=== PATIENT | male | born 1955 | race Caucasian/White ===

== ENCOUNTER → 2017-02-13 | Outpatient (CLI) | payer OTHER ==
[2014-06-13 09:23] VITALS: BP 159/106
--- NOTE | 2017-02-13 11:44 | CT ---
HISTORY: Hematuria and history of renal stones Study: CT abdomen and pelvis without contrast Comparison: None Technique: Multiple axial images of the abdomen and pelvis were obtained from the lung bases to the pubic symph ysis without the administration of IV contrast. Dose reduction techniques including Automated Expos ure Control (AEC) and adjustment of mA and kV were utilized. Findings: Limited images of the lower chest demonstrate mild bibasilar subsegmental atelectasis. No significan t pleural or pericardial effusion seen. Posterior lower lumbosacral fusion hardware is present witho ut visualized complication. No acute or aggressive osseous abnormality is seen. Within the limits of a noncontrast exam, the liver, gallbladder, spleen, pancreas, adrenal glands an d right kidney are unremarkable. There is a 6-7 mm nonobstructing calculus within the interpolar lef t kidney with a few additional adjacent, punctate nonobstructing stones. No additional radiopaque ur inary tract calculi are identified at any level and there is no evidence of hydronephrosis or hydrou reter of either collecting system. Mild colonic diverticulosis is noted. The remaining GI tract appears normal without evidence of obst ruction. The urinary bladder appears normal. The prostate gland is mildly enlarged. No free fluid, f ree air or adenopathy is appreciated. IMPRESSION: Nonobstructing left nephrolithiasis. No hydronephrosis or hydroureter. Mild prostatomegaly. Reported By:
== END | disposition home or self-care (01) | DRG 392 ==
LOC: RAD 11:06
PROVIDERS: ATTEND Internal Medicine
DX: R10.32 Left lower quadrant pain (principal); R31.9 Hematuria, unspecified; M54.5 Low back pain; R10.31 Right lower quadrant pain; N20.0 Calculus of kidney; N40.0 Benign prostatic hyperplasia without lower urinary tract symptoms
CPT/HCPCS: 74176

== ENCOUNTER 2018-11-08 15:54 | Observation (INO) ==
[2018-11-08 16:45] LABS: BASOPHILS # (AUTO) 0.2 X10^3/uL (0.0-0.1); BASOPHILS % (AUTO) 2.4 % (0.2-1.0); EOSINOPHILS % (AUTO) 0.2 % (0.9-2.9); HEMATOCRIT 43.1 % (42.0-54.0); HEMOGLOBIN 14.1 g/dL (13.5-18.0); LYMPHOCYTES # (AUTO) 1.8 X10^3/uL (1.3-2.9); LYMPHOCYTES % (AUTO) 21.7 % (21.0-51.0); MEAN CORPUSCULAR HEMOGLOBIN 28.7 pg (27.0-34.0); MEAN CORPUSCULAR HGB CONC 32.7 g/dL (33.0-35.0); MEAN CORPUSCULAR VOLUME 87.9 fL (80.0-100.0); MEAN PLATELET VOLUME 9.8 fL (7.4-11.0); MONOCYTES # (AUTO) 0.6 x10^3/uL (0.3-0.8); MONOCYTES % (AUTO) 6.8 % (0.0-13.0); NEUTROPHILS # (AUTO) 5.6 x10^3/uL (2.2-4.8); NEUTROPHILS % (AUTO) 68.9 % (42.0-75.0); PLATELET COUNT 359 X10^3/uL (150.0-450.0); RED BLOOD COUNT 4.91 X10^6/uL (4.7-6.0); RED CELL DISTRIBUTION WIDTH 14.4 % (11.6-16.5); WHITE BLOOD COUNT 8.1 X10^3/uL (3.6-10.0)
[2018-11-08 17:17] LABS: ALANINE AMINOTRANSFERASE 23 Units/L (12-78); ALBUMIN 3.7 g/dL (3.4-5.0); ALKALINE PHOSPHATASE 80 Units/L (46-116); ASPARTATE AMINO TRANSFERASE 10 Units/L (15-37); BLOOD UREA NITROGEN 40 mg/dL (7-18); CALCIUM 9.6 mg/dL (8.5-10.1); CARBON DIOXIDE 24.8 mmol/L (21-32); CHLORIDE 91 mmol/L (98-107); CREATININE 2.01 mg/dL (0.70-1.30); SODIUM 127 mmol/L (136-145); TOTAL PROTEIN 7.6 g/dL (6.4-8.2); eGFR NON BLACK RACES 36 (>60)
[2018-11-08 17:22] LABS: COR NA(FOR HYPERGLY) 141 mmol/L (136-145)
--- NOTE | 2018-11-08 17:59 | DR.UPDATE ---
H&P Update History and Physical Update: History and Physical reviewed and patient examined. Changes noted: Yes with the following: WAS SEEN IN THE OFFICE TODAY FOR COMPLAINTS OF HEADACHE, NAUSEA, VOMITING, DIZZINESS, WEAKNESS, AND HYPERGLYCEMIA. HE HAS BEEN TREATED WITH ANTIBIOTICS FOR A SINUS INFECTION WITHOUT IMPROVEMENT IN PAIN. HE WAS ADMITTED FOR FURTHER EVALUATION AND TREATMENT. A H&P WAS COMPLETED PRIOR TO ADMISSION. ON ADMISSION, WE OBTAINED LABS. ABNORMAL LAB VALUES INCLUDE THE FOLLOWING: SODIUM 127, CHLORIDE 91, BUN 40, CREATININE 2.01, GLUCOSE 664, AST 10. WE PLAN TO OBTAIN A BRAIN MRI WITHOUT CONTRAST IN THE MORNING. WE STARTED HIM ON NORMAL SALINE AT 125ML/HR, ROCEPHIN 1GM IV DAILY, TORADOL 30MG IV Q6H PRN PAIN, AND HUMULIN R SLIDING SCALE. OTHERWISE, WE WILL FOLLOW UP WITH AM LABS AND CONTINUE TO MONITOR.
[2018-11-08] MEDS: NS 1000 ML 1,000 ML IV SCH (18:21)
[2018-11-08] MEDS: ROCEPHIN VIAL 1 GRAM IVP SCH (18:21)
[2018-11-08 18:22] VITALS: BMI 25.7
[2018-11-08] MEDS: HumuLIN R SUBCUT PRN ×2 (18:25→22:14)
[2018-11-08] MEDS: TORADOL 30 MG VIAL IVP PRN (18:31)
[2018-11-08 20:20] LABS: BILIRUBIN,URINE NEGATIVE (NEGATIVE); BLOOD/HEMOGLOBIN,URINE NEGATIVE (NEGATIVE); GLUCOSE, URINE 4+ (NEGATIVE); KETONES,URINE NEGATIVE (NEGATIVE); LEUKOCYTE ESTERASE ,URINE NEGATIVE (NEGATIVE); NITRITES,URINE NEGATIVE (NEGATIVE); PROTEIN,URINE NEGATIVE (NEGATIVE); UROBILINOGEN,URINE NORMAL (NORMAL)
[2018-11-08 20:25] LABS: APPEARANCE,URINE CLEAR (CLEAR); COLOR,URINE YELLOW (YELLOW)
[2018-11-08] MEDS: ULTRAM PO PRN (20:36)
[2018-11-09] MEDS: NS 1000 ML 1,000 ML IV SCH ×3 (02:03→18:50)
[2018-11-09] MEDS: TORADOL 30 MG VIAL IVP PRN (05:08)
[2018-11-09 05:41] LABS: ALBUMIN 3.1 g/dL (3.4-5.0); CALCIUM 8.8 mg/dL (8.5-10.1); CARBON DIOXIDE 27.2 mmol/L (21-32); COR CA(FOR HYPOALB) 9.5 mg/dL (8.5-10.1); CREATININE 1.69 mg/dL (0.70-1.30); TOTAL PROTEIN 6.7 g/dL (6.4-8.2)
[2018-11-09 06:24] LABS: BASOPHILS # (AUTO) 0.1 X10^3/uL (0.0-0.1); BASOPHILS % (AUTO) 1.4 % (0.2-1.0); EOSINOPHILS # (AUTO) 0.1 x10^3/uL (0.0-0.2); EOSINOPHILS % (AUTO) 1.5 % (0.9-2.9); HEMATOCRIT 38.6 % (42.0-54.0); HEMOGLOBIN 12.9 g/dL (13.5-18.0); LYMPHOCYTES # (AUTO) 2.8 X10^3/uL (1.3-2.9); LYMPHOCYTES % (AUTO) 34.7 % (21.0-51.0); MEAN CORPUSCULAR HEMOGLOBIN 28.5 pg (27.0-34.0); MEAN CORPUSCULAR HGB CONC 33.5 g/dL (33.0-35.0); MEAN PLATELET VOLUME 9.8 fL (7.4-11.0); MONOCYTES # (AUTO) 0.5 x10^3/uL (0.3-0.8); MONOCYTES % (AUTO) 6.5 % (0.0-13.0); NEUTROPHILS # (AUTO) 4.5 x10^3/uL (2.2-4.8); NEUTROPHILS % (AUTO) 55.9 % (42.0-75.0); PLATELET COUNT 331 X10^3/uL (150.0-450.0); RED BLOOD COUNT 4.54 X10^6/uL (4.7-6.0); RED CELL DISTRIBUTION WIDTH 13.7 % (11.6-16.5); WHITE BLOOD COUNT 8.1 X10^3/uL (3.6-10.0)
--- NOTE | 2018-11-09 06:33 | RAD ---
History: Shortness of breath Study: Portable AP chest Comparison: March 20, 2018 Findings: The heart size is prominent. The lungs are clear. There is no edema or effusion or vascular congestion. Impression: No acute cardiopulmonary disease Reported By:
[2018-11-09] MEDS: ROCEPHIN VIAL 1 GRAM IVP SCH (08:27)
[2018-11-09] MEDS: ULTRAM PO PRN (08:29)
[2018-11-09] MEDS: FIORICET TAB PO PRN ×3 (10:00→18:51)
[2018-11-09] MEDS: HumuLIN R SUBCUT PRN ×3 (11:32→20:57)
[2018-11-09] MEDS ORDERED: VALIUM PO ONE (15:30)
--- NOTE | 2018-11-09 17:00 | MRI ---
MRI BRAIN WITHOUT CONTRAST CLINICAL HISTORY: 62-year-old male with intractable headache for 6 weeks. COMPARISON: CT head 03/20/2018. TECHNIQUE: Multiplanar, multisequence MR images of the brain were obtained without contrast. FINDINGS: There is no evidence of diffusion restriction. The craniocervical junction is normal. Pituitary and optic nerve complex are normal. Few scattered punctate T2 FLAIR signal hyperintensities are present within the subcortical, juxtacortical, periventricular and supraventricular white matter that are nonspecific in appearance but most likely to represent microvascular white matter ischemic changes. Normal signal characteristics and morphology are demonstrated within the cerebral cortex, corpus callosum, deep patiño nuclei, brainstem and cerebellum. The major vascular flow voids, to include the dural venous sinuses, are intact. No abnormal susceptibility on gradient imaging. Age related cortical volume loss is present, with commensurate sulcal and ventricular prominence. The basilar cisterns are normal. The orbits and globes are within normal limits. The paranasal sinuses, tympanic cavities and mastoids are clear. IMPRESSION: 1. No acute ischemic or hemorrhagic insult. 2. Mild, chronic microvascular white matter ischemic disease with age related volume loss. Reported By:
[2018-11-09] MEDS ORDERED: PHENERGAN TAB 25 MG PO PRN (19:54)
[2018-11-09] MEDS ORDERED: SNACK - Diabetic Appropriate PO SCH (20:00)
--- NOTE | 2018-11-09 20:11 | PCM.PROG ---
Progress Note - Progress Note for Day of Date of Exam: 11/09/18 - Subjective Subjective: WAS ADMITTED FOR INTRACTABLE HEADACHE, N/V, WEAKNESS, HYPERGLYCEMIA, AND DIZZINESS. TODAY, HE IS ALERT AND ORIENTED, LYING IN BED ON MORNING ROUNDS. HE CONTINUES WITH PAIN TO RIGHT SIDE OF HEAD AND FACE. ON EXAMINATION, HEART IS REGULAR IN RATE AND RHYTHM. BILATERAL LUNGS ARE NOTED WITH DIMINISHED LUNG SOUNDS THROUGHOUT. ABDOMEN IS ROUND, SOFT, AND NON-TENDER WITH NORMAL BOWEL SOUNDS NOTED IN ALL QUADRANTS. HIS VITALS THIS MORNING ARE 97.9-93-20-97%-148/83. LABS WERE OBTAINED. ABNORMAL LAB VALUES INCLUDE THE FOLLOWING: RBC 4.54, HGB 12.9, HCT 38.6, BUN 47, CREATININE 1.69, GLUCOSE 142, AST 12, ALBUMIN 3.1. CHEST XRAY OBTAINED AND REVEALED NO ACUTE CARDIOPULMONARY DISEASE. HE IS SCHEDULED FOR A BRAIN MRI TODAY. TODAY, WE WILL START FIORCET 1 TAB Q4H PRN PAIN. OTHERWISE, WE WILL FOLLOW UP WITH AM LABS AND CONTINUE TO MONITOR. - Past Medical Family Social History Past Med/Fam/Surg Hx: No changes since H&P Allergies: Allergies amoxicillin Allergy (Verified 11/08/18 16:40) - Review of Systems ROS: No change since H&P - Vital Signs and I&O's Vital Signs: Temperature 99 F Pulse Rate [Apical] 99 Respiratory Rate 20 Blood Pressure [Left Arm] 132/72 Blood Pressure 121/71 O2 Sat by Pulse Oximetry 97 Intake and Output: Intake & Output 11/07/18 11/08/18 11/09/18 11/10/18 11:59 11:59 11:59 11:59 Intake Total 2430 / 2430 480 / 480 Balance 2430 / 2430 480 / 480 - Physical Exam Oriented: Normal Eyes: Normal Ear: Normal Nose: Normal Throat: Normal Respiratory: Generalized, Diminished Cardiovascular: Normal : Normal Auscultation: Bowel Sounds: Normal Palpation: Normal Tenderness: Normal Skin: Normal Musculoskeletal: Normal Psychiatric: Normal Mood Description: Calm Speech Pattern: Clear, Appropriate - Laboratory and Diagnostics Result Diagrams: 11/09/18 04:36 11/09/18 04:36 Labs: Laboratory WBC 8.1 X10^3/uL (3.6-10.0) 11/09/18 04:36 RBC 4.54 X10^6/uL (4.7-6.0) L 11/09/18 04:36 Hgb 12.9 g/dL (13.5-18.0) L 11/09/18 04:36 Hct 38.6 % (42.0-54.0) L 11/09/18 04:36 MCV 85.0 fL (80.0-100.0) 11/09/18 04:36 MCH 28.5 pg (27.0-34.0) 11/09/18 04:36 MCHC 33.5 g/dL (33.0-35.0) 11/09/18 04:36 RDW 13.7 % (11.6-16.5) 11/09/18 04:36 Plt Count 331 X10^3/uL (150.0-450.0) 11/09/18 04:36 MPV 9.8 fL (7.4-11.0) 11/09/18 04:36 Neut % (Auto) 55.9 % (42.0-75.0) 11/09/18 04:36 Lymph % (Auto) 34.7 % (21.0-51.0) 11/09/18 04:36 [place] % (Auto) 6.5 % (0.0-13.0) 11/09/18 04:36 Eos % (Auto) 1.5 % (0.9-2.9) 11/09/18 04:36 Baso % (Auto) 1.4 % (0.2-1.0) H 11/09/18 04:36 Neut # (Auto) 4.5 x10^3/uL (2.2-4.8) 11/09/18 04:36 Lymph # (Auto) 2.8 X10^3/uL (1.3-2.9) 11/09/18 04:36 [place] # (Auto) 0.5 x10^3/uL (0.3-0.8) 11/09/18 04:36 Eos # (Auto) 0.1 x10^3/uL (0.0-0.2) 11/09/18 04:36 Baso # (Auto) 0.1 X10^3/uL (0.0-0.1) 11/09/18 04:36 Absolute Nucleated RBC 0.0 /100WBC 11/09/18 04:36 Sodium 136 mmol/L (136-145) 11/09/18 04:36 Corrected Sodium 137 mmol/L (136-145) 11/09/18 04:36 Potassium 4.5 mmol/L (3.5-5.1) 11/09/18 04:36 Chloride 101 mmol/L (98-107) 11/09/18 04:36 Carbon Dioxide 27.2 mmol/L (21-32) 11/09/18 04:36 BUN 47 mg/dL (7-18) H 11/09/18 04:36 Creatinine 1.69 mg/dL (0.70-1.30) H 11/09/18 04:36 Est GFR (MDRD) Af Amer 53 (>60) L 11/09/18 04:36 Est GFR (MDRD) Non-Af 44 (>60) L 11/09/18 04:36 Glucose 142 mg/dL (65-99) H 11/09/18 04:36 POC Glucose (mg/dL) 194 mg/dL (65-99) H 11/09/18 16:59 Calcium 8.8 mg/dL (8.5-10.1) 11/09/18 04:36 Corrected Calcium 9.5 mg/dL (8.5-10.1) 11/09/18 04:36 Total Bilirubin 0.20 mg/dL (0.2-1.0) 11/09/18 04:36 AST 12 Units/L (15-37) L 11/09/18 04:36 ALT 20 Units/L (12-78) 11/09/18 04:36 Alkaline Phosphatase 66 Units/L (46-116) 11/09/18 04:36 Total Protein 6.7 g/dL (6.4-8.2) 11/09/18 04:36 Albumin 3.1 g/dL (3.4-5.0) L 11/09/18 04:36 Globulin 3.6 g/dL (2.5-4.5) 11/09/18 04:36 Albumin/Globulin Ratio 0.9 Ratio (1.1-2.1) L 11/09/18 04:36 Specimen Type Clean catch urine 11/08/18 20:05 Urine Color Yellow (YELLOW) 11/08/18 20:05 Urine Appearance Clear (CLEAR) 11/08/18 20:05 Urine pH 5.0 (5.0 - 8.0) 11/08/18 20:05 Ur Specific [place] 1.015 (1.000-1.030) 11/08/18 20:05 Urine Protein Negative (NEGATIVE) 11/08/18 20:05 Urine Glucose (UA) 4+ (NEGATIVE) 11/08/18 20:05 Urine Ketones Negative (NEGATIVE) 11/08/18 20:05 Urine Occult Blood Negative (NEGATIVE) 11/08/18 20:05 Urine Nitrite Negative (NEGATIVE) 11/08/18 20:05 Urine Bilirubin Negative (NEGATIVE) 11/08/18 20:05 Urine Urobilinogen Normal (NORMAL) 11/08/18 20:05 Ur Leukocyte Esterase Negative (NEGATIVE) 11/08/18 20:05 Acetone, Semi-Quant Negative (NEGATIVE) 11/08/18 16:32 - Plan (1) Intractable headache Status: Acute Qualifiers: Headache type: unspecified Headache chronicity pattern: acute headache Qualified Code(s): R51 - Headache Plan: OBTAIN BRAIN MRI, FIORCET 1 TAB Q4H PRN, TORADOL 30MG IV Q6H PRN, TRAMADOL, CONTINUE TO MONITOR (2) Nausea & vomiting Status: Acute (3) Weakness Status: Acute
[2018-11-09] MEDS: NORVASC TAB 5 MG PO SCH (20:30)
[2018-11-09] MEDS: HYDROCHLOROTHIAZIDE 12.5 MG CAP PO SCH (20:30)
[2018-11-09] MEDS: ZESTRIL TAB 10 MG PO SCH (20:30)
[2018-11-09] MEDS: PAXIL PO SCH (20:30)
[2018-11-09] MEDS: MAG-OX TAB PO SCH (20:30)
[2018-11-09] MEDS: FLUTICASONE FUROATE Intranasal SCH (20:41)
[2018-11-09] MEDS ORDERED: MAGNESIUM 250 MG PO SCH (21:00)
[2018-11-09] MEDS ORDERED: ZOCOR TAB 40 MG PO SCH (21:00)
[2018-11-09] MEDS ORDERED: FLEXERIL TAB 10 MG PO SCH (21:00)
[2018-11-09] MEDS ORDERED: SIMVASTATIN 80 MG PO SCH (21:00)
[2018-11-09] MEDS ORDERED: PATIENT'S HOME MEDICATION (Lisinopril-Hydrochlorothiazide [Lisinopril-Hydrochlorothiazide] PO SCH (21:00)
[2018-11-10] MEDS: NS 1000 ML 1,000 ML IV SCH (00:59)
[2018-11-10] MEDS: FIORICET TAB PO PRN (04:05)
[2018-11-10] MEDS: HumuLIN R SUBCUT PRN ×2 (06:15→12:05)
[2018-11-10 07:12] LABS: ALANINE AMINOTRANSFERASE 21 Units/L (12-78); ALBUMIN 3.1 g/dL (3.4-5.0); ALKALINE PHOSPHATASE 61 Units/L (46-116); ASPARTATE AMINO TRANSFERASE 16 Units/L (15-37); BLOOD UREA NITROGEN 32 mg/dL (7-18); CALCIUM 8.5 mg/dL (8.5-10.1); CARBON DIOXIDE 24.9 mmol/L (21-32); CHLORIDE 101 mmol/L (98-107); COR CA(FOR HYPOALB) 9.2 mg/dL (8.5-10.1); COR NA(FOR HYPERGLY) 140 mmol/L (136-145); SODIUM 136 mmol/L (136-145); TOTAL PROTEIN 6.7 g/dL (6.4-8.2); eGFR NON BLACK RACES > 60 (>60)
[2018-11-10 07:18] LABS: BASOPHILS # (AUTO) 0.1 X10^3/uL (0.0-0.1); BASOPHILS % (AUTO) 1.3 % (0.2-1.0); EOSINOPHILS # (AUTO) 0.1 x10^3/uL (0.0-0.2); EOSINOPHILS % (AUTO) 1.5 % (0.9-2.9); HEMATOCRIT 37.8 % (42.0-54.0); HEMOGLOBIN 12.5 g/dL (13.5-18.0); LYMPHOCYTES # (AUTO) 2.2 X10^3/uL (1.3-2.9); MEAN CORPUSCULAR HEMOGLOBIN 28.3 pg (27.0-34.0); MEAN CORPUSCULAR VOLUME 85.8 fL (80.0-100.0); MEAN PLATELET VOLUME 9.9 fL (7.4-11.0); MONOCYTES # (AUTO) 0.5 x10^3/uL (0.3-0.8); MONOCYTES % (AUTO) 6.6 % (0.0-13.0); NEUTROPHILS # (AUTO) 4.1 x10^3/uL (2.2-4.8); NEUTROPHILS % (AUTO) 58.6 % (42.0-75.0); PLATELET COUNT 310 X10^3/uL (150.0-450.0); RED CELL DISTRIBUTION WIDTH 14.4 % (11.6-16.5)
[2018-11-10] MEDS: MAG-OX TAB PO SCH (08:55)
[2018-11-10] MEDS: ZESTRIL TAB 10 MG PO SCH (08:55)
[2018-11-10] MEDS: ROCEPHIN VIAL 1 GRAM IVP SCH (08:55)
[2018-11-10] MEDS: PAXIL PO SCH (08:56)
[2018-11-10] MEDS: HYDROCHLOROTHIAZIDE 12.5 MG CAP PO SCH (08:56)
[2018-11-10] MEDS: NORVASC TAB 5 MG PO SCH (08:57)
[2018-11-10] MEDS ORDERED: ACTOS PO SCH (09:00)
[2018-11-10] MEDS ORDERED: COMPAZINE PO SCH (09:00)
[2018-11-10] MEDS: FLUTICASONE FUROATE Intranasal SCH (09:00)
[2018-11-10] MEDS ORDERED: PEPCID TAB 20 MG PO ONE (10:17)
[2018-11-10 12:55] VITALS: BP 146/84
== END 2018-11-10 12:25 | disposition home or self-care (01) ==
LOC: MED/SURG
PROVIDERS: ADMIT Internal Medicine; ATTEND Internal Medicine
DX: E11.65 Type 2 diabetes mellitus with hyperglycemia; R42 Dizziness and giddiness; I10 Essential (primary) hypertension; R11.2 Nausea with vomiting, unspecified; R94.4 Abnormal results of kidney function studies; R51 Headache; R06.02 Shortness of breath; R53.1 Weakness
CPT/HCPCS: 36415; 70551; 71010; 71045; 80053; 81003; 82009; 82947; 85025; 93005; 96367; 96372; 96374; A4216; A4222; Q0169; G0378; J0696; J1815; J1885; J7030

== ENCOUNTER 2018-12-18 11:13 | Inpatient (IN) ==
[2018-12-18 11:18] VITALS: BMI 27.3
--- NOTE | 2018-12-18 12:13 | DR.DIZZY ---
HPI - Time seen Time seen: 12:04 - PCP Primary Care Physician: ASHLEY - Complaint Chief Complaint Doctor Comments: Patient is complaining of dizziness when he stand like he is going to pass out for the past 24 hours getting worst today. States he lives alone but did not come to the doctor because he do not like hospitals. States he has a large dark stook but he are chocolate candy and thought that was why his stool was dark. States he has been having abdominal pain earlier and has seen several different specialist and they tell his so mething different but he denies history of stomach ulcers. He denies hematuria, nausea, vomiting or diarrhea. He denies tobacco or alcohol usage. States he is a patient of Dr. Leary and has diabetes and takes 10 units of insulin with sliding scale. States he has a dull headache, dizziness and problems with his balance when he stand. He denies any recent trauma or falls. Chief Complaint:: PT. C/O DIZZINES AND SYNCOPE. PT. STATES HE PASSED OUT YESTERDAY MORNING WHILE FEEDING HORSES. - Nurses Notes Reviewed Nurses Notes Review: Yes - Source History Provided: Patient - Mode of Arrival Mode of Arrival: Wheelchair - Timing Onset of Chief Complaint: 12/17/18 Came on: Gradually Symptom Onset: Unknown - Duration Duration: Constant How lon Duration: Days - Location of Weakness Weakness Location: Generalized - Context Onset: At rest Does pt take pot. toxic medication?: No History of: DM Stroke Symptoms: Dizziness - Severity Severity: Normal activity level - Modifying factors Worsens: Change in Position, Other (standing) - Associated signs and symptoms Associated Signs and Symptoms: Syncope, Near Syncope, Imbalance, Weak, Headache PMH - PMH Past Medical History: Yes Past Medical History: Hypertension, Diabetes Past Surgical History: Yes Surgical History: Joint Replacement, Ortho Surgery - Family History History of Family Medical Conditions: Yes Family Medical History: Coronary Artery Disease, Hypertension - Social History Does patient currently use any type of tobacco product: No Have you used tobacco products in the last 12 months: No Type of Tobacco Use: None Does any household member use tobacco: No Alcohol Use: None Do you use any recreational Drugs:: No Lives With: Family Lives Where: Home - infectious screening In the last 2 months have you had wt loss of >10#?: NO Have you had fever, night sweats or hemotysis?: No Have you traveled outside the country in the last 6 months?: No Isolation: Standard ROS - Review of Systems Constitutional: No Symptoms Reported, Loss of Appetite Eyes: No Symptoms Reported ENTM: No Symptoms Reported Respiratoy: No Symptoms Reported. negative: See HPI, Productive Cough, Non- Productive Cough, Moist Cough, Dry Cough, Hacking Cough, Barking Cough, Brassy Cough, Orthopnea, Short of Breath, Stridor, Wheezing, Hemoptysis, Other Cardiovascular: No Symptoms Reported. negative: See HPI, Chest Pain, Edema, Palpitations, Syncope, Cyanosis, Skin Mottling, Other Gastrointestinal/Abdominal: No Symptoms Reported. negative: See HPI, Abdominal Pain, Constipation, Diarrhea, Nausea, Vomiting, Food Intolerance, Other Genitourinary: No Symptoms Reported Neurological: No Symptoms Reported, Headache, Weakness, Dizziness, Problems Walking. negative: See HPI, Anxiety, Depressed, Emotional Problems, Numbness, Paresthesia, Pre-existing Deficit, Seizure, Tingling, Tremors, Speech Problem, Other Musculoskeletal: No Symptoms Reported Integumentary: No Symptoms Reported Hematologic/Lymphatic: No Symptoms Reported Endocrine: No Symptoms Reported Psychiatric: No Symptoms Reported. negative: See HPI, Anxiety, Depression, Hallucinations, Excessive crying, Suicidal, Other PE - General Limitations: No Limitations General Appearance: Alert, In Distress (moderate) - Head Head Exam: Normal Inspection, Atraumatic, Normocephalic - Eyes Eye exam: Normal Appearance, PERRL, EOMI. negative: Scleral Icterus, Conjunctival Injection, Nystagmus, Miosis, Mydrasis, Periorbital Swelling, Periorbital Tenderness, Other Pupils: Regular, Round: Bilateral, Reactive: Bilateral Sclera/Conjunctival: Normal Inspection: Bilateral Anterior Chamber: Normal Inspection: Bilateral Posterior Chamber: Deferred: Bilateral - ENT ENT Exam: Normal Exam, Normal Oropharynx, Normal External Ear Exam, Mucous Membranes Moist, TM's Normal Bilaterally - Neck Neck Exam: Normal Inspection, Full ROM, Trachea Midline. negative: Tenderness, Meningismus, Lymphadenopathy, Thyromegaly, Other - Chest Chest Inspection: Normal Inspection, Symmetric Chest Wall Rise. negative: Tenderness, Rash, Abscess, Other - Respiratory Respiratory Exam: Normal Lung Sounds Bilat Respiratory Exam: Bilateral Clear to Auscultation - Cardiovascular Cardiovascular Exam: Regular Rate, Normal Rhythm, Normal Heart Sounds - Abdominal Exam Abdominal Exam: Normal Inspection, Normal Bowel Sounds, Soft Abdominal Tenderness: negative: RUQ, RLQ, LUQ, LLQ, Epigastrium, Suprapubic, Diffuse, Mild, Moderate, Severe, Other - Rectal Rectal Exam: Normal Rectal Tone, Heme (+) Stool, Bloody Stool - Extremeties Extremities Exam: Normal Inspection, Full ROM, Normal Capillary Refill. ne gative: Tenderness, Edema, Joint Swelling, Calf Tenderness, Other - Back Back Exam: Normal Inspection, Full ROM. negative: Tenderness, (R) CVA Tenderness, (L) CVA Tenderness, Muscle Spasm, Paraspinal Tenderness, Vertebral Tenderness, Rashes, (R) Sciatic Notch Tenderness, (L) Sciatic Notch Tendern, (R) Straight Leg Raise, (L) Straight Leg Raise, Other - Neurologic Neurological Exam: Alert, Oriented X3, CN II-XII Intact, Reflexes Normal. negative: Normal Gait (gait not tested) Speech: Fluid Speech Cranial Nerve Exam: EOM Function (II, III, IV, ): Normal, Facial Sensation (V): Normal, Facial Palsy (VII): Normal, Gag reflex (XI): Normal, Tongue Deviation: Normal Cerebellar Function: negative: Normal Gait (gait not tested) Motor Strength - LUE: 5/5 Motor Strength - RUE: 5/5 Motor Strength - LLE: 5/5 Motor Strength - RLE: 5/5 Upper Motor Neuron Exam: Babinski Sign: Normal Sensory Exam Upper Extremity: Light Touch: Normal Sensory Exam Lower Extremity: Light Touch: Normal DTR: bicep (L): 2+, bicep (R): 2+, Patellar (L): 2+, patellar (R): 2+ - Psychiatric Psychiatric Exam: Normal Affect, Normal Mood - Skin Skin Exam: Warm, Dry, Intact, Normal Color, Pallor - Vital Signs Vitals: Temperature 97.6 F Pulse Rate [Apical] 110 Pulse Rate 123 Respiratory Rate 19 Blood Pressure [Left Arm] 113/58 Blood Pressure 110/68 O2 Sat by Pulse Oximetry 96 Course - Reevaluation 1st: Improved - Consultation Called: 13:43 Call Returned: 13:44 (Dr. Rose to admit) - Education/Counseling Education/Counseling: Patient Educated On: Treatment, Diagnosis, Needs for Follow Up ROR - Labs Reviewed Laboratory Results Reviewed?: Yes (All labs and x-ray results reviewed and discussed with patient) Result Diagrams: 12/18/18 11:47 12/18/18 11:47 - XRAY XRAY Interpreted by: Radiologist (CXR: No acute cardiopulmonary changes noted) XRAY Findings: CT head: Noacut intracranial process identified. Mild generalized atrophy - EKG Rate: 113 [place]: Normal Rhythm: ST Block: None Hypertrophy: None ST: Nonsp - Labs Reviewed Laboratory: WBC 10.7 X10^3/uL (3.6-10.0) H 12/18/18 11:47 RBC 2.79 X10^6/uL (4.7-6.0) L 12/18/18 11:47 Hgb 8.4 g/dL (13.5-18.0) L 12/18/18 11:47 Hct 24.8 % (42.0-54.0) L 12/18/18 11:47 MCV 89.1 fL (80.0-100.0) 12/18/18 11:47 MCH 30.1 pg (27.0-34.0) 12/18/18 11:47 MCHC 33.8 g/dL (33.0-35.0) 12/18/18 11:47 RDW 15.3 % (11.6-16.5) 12/18/18 11:47 Plt Count 268 X10^3/uL (150.0-450.0) 12/18/18 11:47 MPV 8.7 fL (7.4-11.0) 12/18/18 11:47 Neut % (Auto) 77.1 % (42.0-75.0) H 12/18/18 11:47 Lymph % (Auto) 17.8 % (21.0-51.0) L 12/18/18 11:47 [place] % (Auto) 4.0 % (0.0-13.0) 12/18/18 11:47 Eos % (Auto) 0.0 % (0.9-2.9) L 12/18/18 11:47 Baso % (Auto) 1.1 % (0.2-1.0) H 12/18/18 11:47 Neut # (Auto) 8.3 x10^3/uL (2.2-4.8) H 12/18/18 11:47 Lymph # (Auto) 1.9 X10^3/uL (1.3-2.9) 12/18/18 11:47 [place] # (Auto) 0.4 x10^3/uL (0.3-0.8) 12/18/18 11:47 Eos # (Auto) 0.0 x10^3/uL (0.0-0.2) 12/18/18 11:47 Baso # (Auto) 0.1 X10^3/uL (0.0-0.1) 12/18/18 11:47 Absolute Nucleated RBC 0.0 /100WBC 12/18/18 11:47 INR Target Range - 12/18/18 11:47 INR 1.04 (0.8-1.3) 12/18/18 11:47 APTT 22.1 SECONDS (22.9-36.5) L 12/18/18 11:47 PTT Comment - 12/18/18 11:47 Sodium 137 mmol/L (136-145) 12/18/18 11:47 Corrected Sodium 143 mmol/L (136-145) 12/18/18 11:47 Potassium 4.2 mmol/L (3.5-5.1) 12/18/18 11:47 Chloride 102 mmol/L (98-107) 12/18/18 11:47 Carbon Dioxide 26.1 mmol/L (21-32) 12/18/18 11:47 BUN 41 mg/dL (7-18) H 12/18/18 11:47 Creatinine 1.63 mg/dL (0.70-1.30) H 12/18/18 11:47 Est GFR (MDRD) Af Amer 55 (>60) L 12/18/18 11:47 Est GFR (MDRD) Non-Af 45 (>60) L 12/18/18 11:47 Glucose 339 mg/dL (65-99) H 12/18/18 11:47 POC Glucose (mg/dL) 388 mg/dL (65-99) H 12/18/18 11:21 Calcium 8.5 mg/dL (8.5-10.1) 12/18/18 11:47 Corrected Calcium 9.2 mg/dL (8.5-10.1) 12/18/18 11:47 Magnesium 1.7 mg/dL (1.7-2.9) 12/18/18 11:47 Total Bilirubin 0.20 mg/dL (0.2-1.0) 12/18/18 11:47 AST 11 Units/L (15-37) L 12/18/18 11:47 ALT 16 Units/L (12-78) 12/18/18 11:47 Alkaline Phosphatase 35 Units/L (46-116) L 12/18/18 11:47 Creatine Kinase 37 Units/L (39-308) L 12/18/18 11:47 CK-MB (CK-2) 1.2 ng/mL (0-4.0) 12/18/18 11:47 CK/CKMB % Calc 3.2 % (<4) 12/18/18 11:47 Troponin I < 0.02 ng/mL (0-1.5) 12/18/18 11:47 Total Protein 5.9 g/dL (6.4-8.2) L 12/18/18 11:47 Albumin 3.1 g/dL (3.4-5.0) L 12/18/18 11:47 Globulin 2.8 g/dL (2.5-4.5) 12/18/18 11:47 Albumin/Globulin Ratio 1.1 Ratio (1.1-2.1) 12/18/18 11:47 Stool Description Ifob collection tube 12/18/18 11:47 Stl Occult Blood (IFOB) Positive (NEGATIVE) A 12/18/18 11:47 Blood Type A POSITIVE 12/18/18 12:27 Antibody Screen Negative 12/18/18 12:27 Crossmatch See Detail 12/18/18 12:27 - Diagnosis Discharge Problem: Weakness, Chronic kidney disease (CKD), Sinus tachycardia, Dizziness GI (gastrointestinal bleed) Qualifiers: GI bleed type/associated pathology: unspecified gastrointestinal hemorrhage type Qualified Code(s): K92.2 - Gastrointestinal hemorrhage, unspecified Diabetes mellitus Qualifiers: Diabetes mellitus type: type 1 Headache Qualifiers: Headache type: unspecified Syncope Qualifiers: Encounter type: initial encounter - Discharge Plan Disposition: ADMITTED INPATIENT Condition: Stable
--- NOTE | 2018-12-18 12:27 | RAD ---
Examination: Portable AP chest History: Dizzy with syncope Comparison 11/09/2018 Findings: Continued normal heart size with clear lungs and pleural spaces. Impression: No interval change or acute disease demonstrated. Reported By:
[2018-12-18 12:37] LABS: BASOPHILS # (AUTO) 0.1 X10^3/uL (0.0-0.1); BASOPHILS % (AUTO) 1.1 % (0.2-1.0); HEMATOCRIT 24.8 % (42.0-54.0); HEMOGLOBIN 8.4 g/dL (13.5-18.0); LYMPHOCYTES # (AUTO) 1.9 X10^3/uL (1.3-2.9); LYMPHOCYTES % (AUTO) 17.8 % (21.0-51.0); MEAN CORPUSCULAR HEMOGLOBIN 30.1 pg (27.0-34.0); MEAN CORPUSCULAR HGB CONC 33.8 g/dL (33.0-35.0); MEAN CORPUSCULAR VOLUME 89.1 fL (80.0-100.0); MEAN PLATELET VOLUME 8.7 fL (7.4-11.0); MONOCYTES # (AUTO) 0.4 x10^3/uL (0.3-0.8); NEUTROPHILS # (AUTO) 8.3 x10^3/uL (2.2-4.8); NEUTROPHILS % (AUTO) 77.1 % (42.0-75.0); PLATELET COUNT 268 X10^3/uL (150.0-450.0); RED BLOOD COUNT 2.79 X10^6/uL (4.7-6.0); RED CELL DISTRIBUTION WIDTH 15.3 % (11.6-16.5); WHITE BLOOD COUNT 10.7 X10^3/uL (3.6-10.0)
[2018-12-18 12:58] LABS: BLOOD UREA NITROGEN 41 mg/dL (7-18); CALCIUM 8.5 mg/dL (8.5-10.1); CARBON DIOXIDE 26.1 mmol/L (21-32); CHLORIDE 102 mmol/L (98-107); COR NA(FOR HYPERGLY) 143 mmol/L (136-145); CREATININE 1.63 mg/dL (0.70-1.30); SODIUM 137 mmol/L (136-145); TROPONIN I < 0.02 ng/mL (0-1.5); eGFR NON BLACK RACES 45 (>60)
[2018-12-18] MEDS ORDERED: NS 1000 ML 1,000 ML IV SCH (13:00)
[2018-12-18 13:02] LABS: ALANINE AMINOTRANSFERASE 16 Units/L (12-78); ALBUMIN 3.1 g/dL (3.4-5.0); ALKALINE PHOSPHATASE 35 Units/L (46-116); ASPARTATE AMINO TRANSFERASE 11 Units/L (15-37); CKMB % 3.2 % (<4); COR CA(FOR HYPOALB) 9.2 mg/dL (8.5-10.1); CREATINE KINASE 37 Units/L (39-308); CREATINE KINASE MB 1.2 ng/mL (0-4.0); MAGNESIUM 1.7 mg/dL (1.7-2.9); TOTAL PROTEIN 5.9 g/dL (6.4-8.2)
[2018-12-18] MEDS ORDERED: TYLENOL #3 TAB (W/CODEINE) PO STA (13:26)
--- NOTE | 2018-12-18 14:07 | CT ---
HISTORY: Had a Study: CT brain without contrast Comparison: March 20, 2018 Technique: Multiple axial images of the brain were obtained from the skull base to the vertex without administration of IV contrast. Findings: No acute intraparenchymal hemorrhage or mass can be identified. No extra-axial fluid collections are seen. No alteration in the attenuation of the brain parenchyma can be identified to suggest acute or subacute ischemic change. The ventricles, sulci, and cisterns demonstrate an appearance consistent with a mild degree of generalized atrophy. Patchy areas of decreased attenuation within the periventricular, subcortical, and subinsular white matter suggest changes of chronic small vessel ischemic disease. If symptoms or clinical concern persist recommend continued follow-up for further evaluation. IMPRESSION: No acute intracranial process can be identified. Mild generalized atrophy with findings consistent with changes of chronic small vessel ischemic disease. Reported By:
--- NOTE | 2018-12-18 14:49 | DR.H&P ---
H&P - History & Physical for Day of: H&P Date: 12/18/18 - Chief Complaint Chief Complaint: SYNCOPE - History of Present Illness History of Present Illness: 63 WM ER ADMISSION AFTER PRESENTING WITH CO dizziness when he stand like he is going to pass out for the past 24 hours getting worst today. States he lives alone but did not come to the doctor because he do not like hospitals. States he has a large dark stook but he are chocolate candy and thought that was why his stool was dark. States he has been having abdominal pain earlier and has seen several different specialist and they tell his something different but he denies history of stomach ulcers. He denies hematuria, nausea, vomiting or diarrhea. He denies tobacco or alcohol usage. States he is a patient of Dr. Leary and has diabetes and takes 10 units of insulin with sliding scale. States he has a dull headache, dizziness and problems with his balance when he stand. He denies any recent trauma or falls. HCG 8.4 IN ER, OCCULT + STOOL. PT ADMITTED FOR TREATMENT OF GI BLEED, NPO, IV PROTONIX. - Past Medical History Past Medical History: Hypertension, Diabetes - Past Surgical History Surgical History: Joint Replacement, Ortho Surgery - Family History Family Medical History: Coronary Artery Disease, Hypertension - Social History Does patient currently use any type of tobacco product: No Have you used tobacco products in the last 12 months: No Type of Tobacco Use: None Does any household member use tobacco: No Alcohol Use: None - Medications Home Medications: amoxicillin Allergy (Verified 12/18/18 11:18) CONTINUE taking the following medications glipizide 10 mg PO DAILY 12/18/18 [History] insulin NPH isoph U-100 human [Novolin N NPH U-100 Insulin] 10 units SUBCUT BID 12/18/18 [History] insulin regular human [Humulin R Regular U-100 Insuln] 10 units SUBCUT TID 12/18/18 [History] - Review of Systems Constitutional: Weakness Eyes: No Symptoms Reported ENT: No Symptoms Reported Respiratory: No Symptoms Reported Cardiovascular: No Symptoms Reported Gastrointestinal: Abdominal Pain, Melena Genitourinary: No Symptoms Reported Musculoskeletal: No Symptoms Reported Skin: No Symptoms Reported Neurological: Weakness - Physical Exam Vital Signs: Temperature 97.6 F Pulse Rate [Apical] 101 Pulse Rate 123 Respiratory Rate 25 Blood Pressure [Left Arm] 124/74 Blood Pressure 110/68 O2 Sat by Pulse Oximetry 95 Oriented: Normal Eyes: Normal Ear: Normal Nose: Normal Throat: Normal Respiratory: RLL Diminished, LLL Diminished Cardiovascular: Normal : Normal Auscultation: Bowel Sounds: Normal Palpation: Normal Tenderness: Epigastric, Mild Skin: Decreased Turgur Musculoskeletal: Normal Psychiatric: Anxiety Affect: Anxious Speech Pattern: Clear, Appropriate - Assessment/Plan (1) Syncope Qualifiers: Encounter type: initial encounter Status: Acute Plan: ADMIT, CT HEAD IN ER. CXR, EKG ON ADMISSION. OCCULT STOOL, IV PROTONIX, MONITOR H&H. IV HYDRATION, STRICT I & OS. NPO, GI CONSULT (2) Abdominal pain Status: Acute (3) Diabetes mellitus Qualifiers: Diabetes mellitus type: type 1 Status: Acute (4) Weakness Status: Acute (5) GI (gastrointestinal bleed) Qualifiers: GI bleed type/associated pathology: unspecified gastrointestinal hemorrhage type Qualified Code(s): K92.2 - Gastrointestinal hemorrhage, unspecified Status: Acute - Allergies Allergies/Adverse Reactions: Allergies Allergy/AdvReac Type Severity Reaction Status Date / Time amoxicillin Allergy Verified 12/18/18 11:18
[2018-12-18] MEDS ORDERED: ZOFRAN INJ 4 MG VIAL IVP PRN (15:45)
[2018-12-18 16:03] LABS: IRON 50 ug/dL (50-175)
[2018-12-18] MEDS ORDERED: NS 100 ML IV 100 ML ONE (16:13)
[2018-12-18] MEDS: NS 1000 ML 1,000 ML IV SCH (16:39)
[2018-12-18] MEDS: PROTONIX INJ 40 MG VIAL IVP SCH ×2 (16:41→21:28)
[2018-12-18 17:32] LABS: CKMB % 2.1 % (<4); CREATINE KINASE 47 Units/L (39-308); TROPONIN I < 0.02 ng/mL (0-1.5)
[2018-12-18 19:33] LABS: HEMATOCRIT 22.6 % (42.0-54.0); HEMOGLOBIN 7.6 g/dL (13.5-18.0)
[2018-12-18] MEDS: HumuLIN R SUBCUT PRN (22:00)
[2018-12-18 22:04] LABS: CREATINE KINASE MB 1.2 ng/mL (0-4.0); TROPONIN I 0.02 ng/mL (0-1.5)
[2018-12-18 23:38] LABS: IRON 72 ug/dL (50-175); TOTAL IRON BINDING CAPACITY 315 ug/dL (250-450)
[2018-12-19] MEDS: NORCO 5/325 MG TAB PO PRN
[2018-12-19] MEDS: NS 1000 ML 1,000 ML IV SCH ×2 (04:14→15:18)
[2018-12-19 05:34] LABS: ALANINE AMINOTRANSFERASE 14 Units/L (12-78); ALBUMIN 2.7 g/dL (3.4-5.0); ALKALINE PHOSPHATASE 29 Units/L (46-116); ASPARTATE AMINO TRANSFERASE 13 Units/L (15-37); BLOOD UREA NITROGEN 29 mg/dL (7-18); CALCIUM 8.1 mg/dL (8.5-10.1); CARBON DIOXIDE 26.3 mmol/L (21-32); CHLORIDE 106 mmol/L (98-107); COR CA(FOR HYPOALB) 9.1 mg/dL (8.5-10.1); COR NA(FOR HYPERGLY) 140 mmol/L (136-145); CREATININE 1.15 mg/dL (0.70-1.30); SODIUM 139 mmol/L (136-145); TOTAL PROTEIN 5.1 g/dL (6.4-8.2); eGFR NON BLACK RACES > 60 (>60)
[2018-12-19 06:23] LABS: BASOPHILS # (AUTO) 0.1 X10^3/uL (0.0-0.1); BASOPHILS % (AUTO) 1.1 % (0.2-1.0); EOSINOPHILS % (AUTO) 0.7 % (0.9-2.9); HEMOGLOBIN 7.1 g/dL (13.5-18.0); LYMPHOCYTES # (AUTO) 3.1 X10^3/uL (1.3-2.9); LYMPHOCYTES % (AUTO) 42.5 % (21.0-51.0); MEAN CORPUSCULAR HEMOGLOBIN 29.8 pg (27.0-34.0); MEAN CORPUSCULAR HGB CONC 33.7 g/dL (33.0-35.0); MEAN CORPUSCULAR VOLUME 88.4 fL (80.0-100.0); MEAN PLATELET VOLUME 9.3 fL (7.4-11.0); MONOCYTES # (AUTO) 0.5 x10^3/uL (0.3-0.8); MONOCYTES % (AUTO) 6.4 % (0.0-13.0); NEUTROPHILS # (AUTO) 3.6 x10^3/uL (2.2-4.8); NEUTROPHILS % (AUTO) 49.3 % (42.0-75.0); PLATELET COUNT 232 X10^3/uL (150.0-450.0); RED BLOOD COUNT 2.38 X10^6/uL (4.7-6.0); RED CELL DISTRIBUTION WIDTH 15.2 % (11.6-16.5); WHITE BLOOD COUNT 7.3 X10^3/uL (3.6-10.0)
[2018-12-19 06:47] LABS: PLATELET MORPHOLOGY COMMENT NORMAL (NORMAL)
[2018-12-19] MEDS ORDERED: STERILE WATER IRRIGATION ONE (09:21)
[2018-12-19] MEDS: PROTONIX INJ 40 MG VIAL IVP SCH ×2 (10:28→20:27)
[2018-12-19] MEDS ORDERED: DIPRIVAN VIAL 20 ML ONE (16:12)
[2018-12-19] MEDS: CARAFATE PO SCH ×2 (17:20→22:10)
[2018-12-19 17:30] LABS: HEMOGLOBIN 6.7 g/dL (13.5-18.0)
[2018-12-19 17:31] LABS: HEMATOCRIT 19.7 % (42.0-54.0)
[2018-12-19] MEDS ORDERED: NS 250 ML IV 250 ML ONE (21:49)
[2018-12-19] MEDS: HumuLIN R SUBCUT PRN (22:10)
[2018-12-20] MEDS ORDERED: NORCO 5/325 MG TAB PO ONE (01:37)
[2018-12-20] MEDS: NS 1000 ML 1,000 ML IV SCH ×2 (05:15→21:10)
[2018-12-20] MEDS: CARAFATE PO SCH ×4 (05:44→22:37)
[2018-12-20 06:55] LABS: ALANINE AMINOTRANSFERASE 15 Units/L (12-78); ALBUMIN 2.7 g/dL (3.4-5.0); ALKALINE PHOSPHATASE 33 Units/L (46-116); ASPARTATE AMINO TRANSFERASE 19 Units/L (15-37); BLOOD UREA NITROGEN 17 mg/dL (7-18); CALCIUM 8.2 mg/dL (8.5-10.1); CARBON DIOXIDE 27.3 mmol/L (21-32); CHLORIDE 104 mmol/L (98-107); COR CA(FOR HYPOALB) 9.2 mg/dL (8.5-10.1); COR NA(FOR HYPERGLY) 140 mmol/L (136-145); SODIUM 138 mmol/L (136-145); TOTAL PROTEIN 5.3 g/dL (6.4-8.2); eGFR NON BLACK RACES > 60 (>60)
[2018-12-20 07:00] LABS: BASOPHILS # (AUTO) 0.1 X10^3/uL (0.0-0.1); BASOPHILS % (AUTO) 1.3 % (0.2-1.0); EOSINOPHILS # (AUTO) 0.1 x10^3/uL (0.0-0.2); EOSINOPHILS % (AUTO) 1.6 % (0.9-2.9); HEMATOCRIT 27.4 % (42.0-54.0); LYMPHOCYTES # (AUTO) 2.6 X10^3/uL (1.3-2.9); LYMPHOCYTES % (AUTO) 42.1 % (21.0-51.0); MEAN CORPUSCULAR HEMOGLOBIN 29.9 pg (27.0-34.0); MEAN CORPUSCULAR HGB CONC 33.6 g/dL (33.0-35.0); MEAN CORPUSCULAR VOLUME 89.2 fL (80.0-100.0); MEAN PLATELET VOLUME 8.7 fL (7.4-11.0); MONOCYTES # (AUTO) 0.5 x10^3/uL (0.3-0.8); MONOCYTES % (AUTO) 8.7 % (0.0-13.0); NEUTROPHILS # (AUTO) 2.9 x10^3/uL (2.2-4.8); NEUTROPHILS % (AUTO) 46.3 % (42.0-75.0); PLATELET COUNT 201 X10^3/uL (150.0-450.0); RED BLOOD COUNT 3.07 X10^6/uL (4.7-6.0); WHITE BLOOD COUNT 6.2 X10^3/uL (3.6-10.0)
[2018-12-20 07:05] LABS: HEMOGLOBIN 9.2 g/dL (13.5-18.0)
[2018-12-20] MEDS: PROTONIX INJ 40 MG VIAL IVP SCH ×2 (09:13→20:40)
[2018-12-20] MEDS: NORCO 5/325 MG TAB PO PRN ×2 (09:13→21:11)
[2018-12-20] MEDS: HumuLIN R SUBCUT PRN ×2 (17:24→20:39)
[2018-12-20 17:25] LABS: HEMATOCRIT 27.6 % (42.0-54.0); HEMOGLOBIN 9.3 g/dL (13.5-18.0)
--- NOTE | 2018-12-20 20:48 | PCM.PROG ---
Progress Note - Progress Note for Day of Date of Exam: 12/20/18 - Subjective Subjective: WAS ADMITTED ON 12/18/18 FOR GI BLEED AND SYMPTOMATIC ANEMIA. HE RECEIVED TWO UNITS OF BLOOD YESTERDAY. HE HAS A HISTORY OF GERD, DM, AND HTN. TODAY, HE IS ALERT AND ORIENTED, LYING IN BED ON MORNING ROUNDS. HE REPORTS ABDOMINAL PAIN WITH DARK STOOLS. ON EXAMINATION, HEART IS REGULAR IN RATE AND RHYTHM. BILATERAL LUNGS ARE NOTED WITH DIMINISHED LUNG SOUNDS THROUGHOUT. ABDOMEN IS ROUND, SOFT, AND NOTED WITH MILD, DIFFUSE TENDERNESS. NORMAL BOWEL SOUNDS NOTED IN ALL QUADRANTS. HIS VITALS THIS MORNING ARE 97.0-76-20-99%-120/67. LABS WERE OBTAINED. ABNORMAL LAB VALUES INCLUDE THE FOL LOWING: RBC 3.07, HGB 9.2, HCT 27.4, GLUCOSE 164, CALCIUM 8.2, ALK PHOS 33, TOTAL PROTEIN 5.3, ALBUMIN 2.7. HE CONTINUES TO RECEIVED IV PROTONIX, IV FLUIDS, AND CAREAFATE 1G PO Q6H. WE WILL CONTINUE WITH CURRENT PLAN OF CARE TODAY. OTHERWISE, WE WILL FOLLOW UP WITH AM LABS AND CONTINUE TO MONITOR. - Past Medical Family Social History Past Med/Fam/Surg Hx: No changes since H&P Allergies: Allergies amoxicillin Allergy (Verified 12/18/18 11:18) - Review of Systems ROS: No change since H&P - Vital Signs and I&O's Vital Signs: Temperature 98.2 F Pulse Rate [Left Brachial] 83 Pulse Rate [Apical] 96 Pulse Rate 123 Respiratory Rate 18 Blood Pressure [Left Arm] 113/70 Blood Pressure 110/68 O2 Sat by Pulse Oximetry 97 Intake and Output: Intake & Output 12/18/18 12/19/18 12/20/18 12/21/18 11:59 11:59 11:59 11:59 Intake Total 1360 / 1360 2930 / 2930 600 / 600 Output Total 1200 / 1200 700 / 700 650 / 650 Balance 160 / 160 2230 / 2230 -50 / -50 - Physical Exam Oriented: Normal Eyes: Normal Ear: Normal Nose: Normal Throat: Normal Respiratory: Diminished Cardiovascular: Normal : Normal Auscultation: Bowel Sounds: Normal Palpation: Normal Tenderness: Diffuse, Mild Skin: Decreased Turgur Musculoskeletal: Normal Psychiatric: Anxiety Affect: Anxious Speech Pattern: Clear, Appropriate - Laboratory and Diagnostics Result Diagrams: 12/20/18 17:07 12/20/18 06:28 Labs: Laboratory WBC 6.2 X10^3/uL (3.6-10.0) 12/20/18 06:28 RBC 3.07 X10^6/uL (4.7-6.0) L 12/20/18 06:28 Hgb 9.3 g/dL (13.5-18.0) L 12/20/18 17:07 Hct 27.6 % (42.0-54.0) L 12/20/18 17:07 MCV 89.2 fL (80.0-100.0) 12/20/18 06:28 MCH 29.9 pg (27.0-34.0) 12/20/18 06:28 MCHC 33.6 g/dL (33.0-35.0) 12/20/18 06:28 RDW 15.0 % (11.6-16.5) 12/20/18 06:28 Plt Count 201 X10^3/uL (150.0-450.0) 12/20/18 06:28 Plt Count Comment Adequate (ADEQUATE) 12/19/18 04:00 MPV 8.7 fL (7.4-11.0) 12/20/18 06:28 Neut % (Auto) 46.3 % (42.0-75.0) 12/20/18 06:28 Lymph % (Auto) 42.1 % (21.0-51.0) 12/20/18 06:28 [place] % (Auto) 8.7 % (0.0-13.0) 12/20/18 06:28 Eos % (Auto) 1.6 % (0.9-2.9) 12/20/18 06:28 Baso % (Auto) 1.3 % (0.2-1.0) H 12/20/18 06:28 Neut # (Auto) 2.9 x10^3/uL (2.2-4.8) 12/20/18 06:28 Lymph # (Auto) 2.6 X10^3/uL (1.3-2.9) 12/20/18 06:28 [place] # (Auto) 0.5 x10^3/uL (0.3-0.8) 12/20/18 06:28 Eos # (Auto) 0.1 x10^3/uL (0.0-0.2) 12/20/18 06:28 Baso # (Auto) 0.1 X10^3/uL (0.0-0.1) 12/20/18 06:28 Absolute Nucleated RBC 0.0 /100WBC 12/20/18 06:28 Plt Morphology Comment Normal (NORMAL) 12/19/18 04:00 RBC Morphology Normal (NORMAL) 12/19/18 04:00 INR Target Range - 12/18/18 11:47 INR 1.04 (0.8-1.3) 12/18/18 11:47 APTT 22.1 SECONDS (22.9-36.5) L 12/18/18 11:47 PTT Comment - 12/18/18 11:47 Sodium 138 mmol/L (136-145) 12/20/18 06:28 Corrected Sodium 140 mmol/L (136-145) 12/20/18 06:28 Potassium 4.2 mmol/L (3.5-5.1) 12/20/18 06:28 Chloride 104 mmol/L (98-107) 12/20/18 06:28 Carbon Dioxide 27.3 mmol/L (21-32) 12/20/18 06:28 BUN 17 mg/dL (7-18) 12/20/18 06:28 Creatinine 0.90 mg/dL (0.70-1.30) 12/20/18 06:28 Est GFR (MDRD) Af Amer > 60 (>60) 12/20/18 06:28 Est GFR (MDRD) Non-Af > 60 (>60) 12/20/18 06:28 Glucose 164 mg/dL (65-99) H 12/20/18 06:28 POC Glucose (mg/dL) 388 mg/dL (65-99) H 12/18/18 11:21 Calcium 8.2 mg/dL (8.5-10.1) L 12/20/18 06:28 Corrected Calcium 9.2 mg/dL (8.5-10.1) 12/20/18 06:28 Magnesium 1.7 mg/dL (1.7-2.9) 12/18/18 11:47 Iron 50 ug/dL (50-175) 12/18/18 15:06 TIBC 315 ug/dL (250-450) 12/18/18 12:27 Transferrin 234 mg/dL (202-364) 12/18/18 15:06 Ferritin 19 ng/mL (26-388) L 12/18/18 15:06 Total Bilirubin 0.30 mg/dL (0.2-1.0) 12/20/18 06:28 AST 19 Units/L (15-37) 12/20/18 06:28 ALT 15 Units/L (12-78) 12/20/18 06:28 Alkaline Phosphatase 33 Units/L (46-116) L 12/20/18 06:28 Creatine Kinase 40 Units/L (39-308) 12/18/18 21:32 CK-MB (CK-2) 1.2 ng/mL (0-4.0) 12/18/18 21:32 CK/CKMB % Calc 3.0 % (<4) 12/18/18 21:32 Troponin I 0.02 ng/mL (0-1.5) 12/18/18 21:32 Total Protein 5.3 g/dL (6.4-8.2) L 12/20/18 06:28 Albumin 2.7 g/dL (3.4-5.0) L 12/20/18 06:28 Globulin 2.6 g/dL (2.5-4.5) 12/20/18 06:28 Albumin/Globulin Ratio 1.0 Ratio (1.1-2.1) L 12/20/18 06:28 Vitamin B12 499 pg/mL (193-986) 12/18/18 15:06 Folate > 20.0 ng/mL (>8.6) 12/18/18 15:06 Stool Description Ifob collection tube 12/18/18 11:47 Stl Occult Blood (IFOB) Positive (NEGATIVE) A 12/18/18 11:47 Blood Type A POSITIVE 12/18/18 12:27 Antibody Screen Negative 12/18/18 12:27 Crossmatch See Detail 12/18/18 12:27 - Plan (1) GI (gastrointestinal bleed) Status: Acute Qualifiers: GI bleed type/associated pathology: unspecified gastrointestinal hemorrhage type Qualified Code(s): K92.2 - Gastrointestinal hemorrhage, unspecified Plan: CONTINUE IV PROTONIX, CARAFATE PO, IV FLUIDS, CONTINUE TO MONITOR (2) Anemia Status: Acute Qualifiers: Anemia type: unspecified type Qualified Code(s): D64.9 - Anemia, unspecified Plan: MONITOR H&H, TRANSFUSE PRBC IF NEEDED, CONTINUE TO MONITOR (3) Weakness Status: Acute
[2018-12-20] MEDS: MORPHINE SULFATE INJ 2 MG INJ IVP PRN (22:37)
[2018-12-21 05:10] LABS: BASOPHILS # (AUTO) 0.1 X10^3/uL (0.0-0.1); BASOPHILS % (AUTO) 1.1 % (0.2-1.0); EOSINOPHILS # (AUTO) 0.1 x10^3/uL (0.0-0.2); EOSINOPHILS % (AUTO) 2.3 % (0.9-2.9); HEMOGLOBIN 9.1 g/dL (13.5-18.0); LYMPHOCYTES # (AUTO) 2.4 X10^3/uL (1.3-2.9); LYMPHOCYTES % (AUTO) 39.6 % (21.0-51.0); MEAN CORPUSCULAR HEMOGLOBIN 30.3 pg (27.0-34.0); MEAN CORPUSCULAR HGB CONC 33.7 g/dL (33.0-35.0); MEAN CORPUSCULAR VOLUME 89.7 fL (80.0-100.0); MONOCYTES # (AUTO) 0.5 x10^3/uL (0.3-0.8); MONOCYTES % (AUTO) 8.3 % (0.0-13.0); NEUTROPHILS # (AUTO) 2.9 x10^3/uL (2.2-4.8); NEUTROPHILS % (AUTO) 48.7 % (42.0-75.0); PLATELET COUNT 226 X10^3/uL (150.0-450.0); RED BLOOD COUNT 3.01 X10^6/uL (4.7-6.0); RED CELL DISTRIBUTION WIDTH 14.9 % (11.6-16.5)
[2018-12-21 05:19] LABS: ALANINE AMINOTRANSFERASE 15 Units/L (12-78); ALBUMIN 2.7 g/dL (3.4-5.0); ALKALINE PHOSPHATASE 34 Units/L (46-116); ASPARTATE AMINO TRANSFERASE 16 Units/L (15-37); BLOOD UREA NITROGEN 11 mg/dL (7-18); CALCIUM 8.1 mg/dL (8.5-10.1); CHLORIDE 104 mmol/L (98-107); COR CA(FOR HYPOALB) 9.1 mg/dL (8.5-10.1); COR NA(FOR HYPERGLY) 141 mmol/L (136-145); CREATININE 0.96 mg/dL (0.70-1.30); SODIUM 139 mmol/L (136-145); TOTAL PROTEIN 5.3 g/dL (6.4-8.2); eGFR NON BLACK RACES > 60 (>60)
[2018-12-21] MEDS: CARAFATE PO SCH ×2 (05:55→12:10)
[2018-12-21] MEDS: HumuLIN R SUBCUT PRN (05:56)
[2018-12-21] MEDS: NORCO 5/325 MG TAB PO PRN (05:56)
[2018-12-21 08:30] VITALS: BP 119/73
[2018-12-21] MEDS ORDERED: MILK OF MAGNESIA PO SCH (09:00)
[2018-12-21] MEDS ORDERED: NORCO 10/325 TAB PO PRN (09:27)
[2018-12-21] MEDS: PROTONIX INJ 40 MG VIAL IVP SCH (09:30)
[2018-12-21] MEDS: MORPHINE SULFATE INJ 2 MG INJ IVP PRN (09:35)
[2018-12-21] MEDS ORDERED: COLACE CAP 100 MG PO SCH (21:00)
== END 2018-12-21 10:35 | disposition home or self-care (01) | DRG 379 ==
LOC: ER 11:15 → MED/SURG 13:52
PROVIDERS: ADMIT Internal Medicine; ATTEND Internal Medicine
DX: R52 Pain, unspecified; K44.9 Diaphragmatic hernia without obstruction or gangrene; K29.00 Acute gastritis without bleeding; R42 Dizziness and giddiness; R53.1 Weakness; Z79.4 Long term (current) use of insulin; E10.65 Type 1 diabetes mellitus with hyperglycemia; K20.8 Other esophagitis; R26.89 Other abnormalities of gait and mobility; R55 Syncope and collapse; K92.2 Gastrointestinal hemorrhage, unspecified; D64.89 Other specified anemias; R00.0 Tachycardia, unspecified; N18.9 Chronic kidney disease, unspecified; K29.60 Other gastritis without bleeding
CPT/HCPCS: 36415; 36430; 70450; 71010; 71045; 80053; 82270; 82550; 82553; 82607; 82728; 82746; 83540; 83550; 83735; 84466; 84484; 85014; 85018; 85025; 85610; 85730; 86850; 86900; 86901; 86922; 93005; 94760; 96365; 96367; 97162; 99284; A4216; A4217; A4222; C9113; P9016; J1815; J2270; J2405; J2704; J7030

== ENCOUNTER 2019-01-26 23:53 | Observation (INO) ==
[2019-01-27 00:03] VITALS: BMI 27.2
[2019-01-27] MEDS ORDERED: D50W ABBOJECT SYR IV ONE (00:27)
[2019-01-27] MEDS ORDERED: D50W ABBOJECT SYR ONE (00:28)
[2019-01-27] MEDS ORDERED: OFIRMEV IV 1000 MG VIAL 1,000 MG/100 ML VIAL IV PRN (00:36)
[2019-01-27 00:37] LABS: BASOPHILS # (AUTO) 0.1 X10^3/uL (0.0-0.1); BASOPHILS % (AUTO) 0.9 % (0.2-1.0); EOSINOPHILS % (AUTO) 0.4 % (0.9-2.9); HEMATOCRIT 29.8 % (42.0-54.0); HEMOGLOBIN 9.8 g/dL (13.5-18.0); LYMPHOCYTES # (AUTO) 1.8 X10^3/uL (1.3-2.9); LYMPHOCYTES % (AUTO) 21.2 % (21.0-51.0); MEAN CORPUSCULAR HEMOGLOBIN 26.9 pg (27.0-34.0); MEAN CORPUSCULAR HGB CONC 32.9 g/dL (33.0-35.0); MEAN CORPUSCULAR VOLUME 81.6 fL (80.0-100.0); MEAN PLATELET VOLUME 8.8 fL (7.4-11.0); MONOCYTES # (AUTO) 1.2 x10^3/uL (0.3-0.8); MONOCYTES % (AUTO) 13.7 % (0.0-13.0); NEUTROPHILS # (AUTO) 5.5 x10^3/uL (2.2-4.8); NEUTROPHILS % (AUTO) 63.8 % (42.0-75.0); PLATELET COUNT 409 X10^3/uL (150.0-450.0); RED BLOOD COUNT 3.65 X10^6/uL (4.7-6.0); RED CELL DISTRIBUTION WIDTH 16.9 % (11.6-16.5); WHITE BLOOD COUNT 8.7 X10^3/uL (3.6-10.0)
[2019-01-27] MEDS ORDERED: OFIRMEV IV 1000 MG VIAL 1,000 MG/100 ML VIAL IV ONE (00:42)
[2019-01-27 00:45] LABS: BLOOD UREA NITROGEN 18 mg/dL (7-18); CALCIUM 9.4 mg/dL (8.5-10.1); CARBON DIOXIDE 27.5 mmol/L (21-32); CHLORIDE 102 mmol/L (98-107); CREATININE 1.14 mg/dL (0.70-1.30); SODIUM 139 mmol/L (136-145); eGFR NON BLACK RACES > 60 (>60)
[2019-01-27 00:46] LABS: ALANINE AMINOTRANSFERASE 27 Units/L (12-78); ALBUMIN 3.5 g/dL (3.4-5.0); ALKALINE PHOSPHATASE 79 Units/L (46-116); ASPARTATE AMINO TRANSFERASE 28 Units/L (15-37); TOTAL PROTEIN 8.2 g/dL (6.4-8.2)
[2019-01-27] MEDS ORDERED: NS 250 ML IV 250 ML IV ONE (00:50)
[2019-01-27] MEDS ORDERED: NS 250 ML IV 250 ML ONE (00:53)
--- NOTE | 2019-01-27 00:54 | DR.AMS ---
HPI Time Seen Time Seen by Provider: 01/27/19 00:53 PCP Primary Care Physician: ASHLEY HPI Comment HPI Comment: PATIENT IS 63YR OLD WHITE MALE WITH HISTORY OF DM, HTN AND DEPREESION IS IN ED WITH AMS, CONFUSION AND HALLUCINATIONS. PATIENT FELL LAST WEEK SUSTAINING SEVERAL RIB FRACTURES AND WAS GIVEN OXYCODONES. PROGRESSIVE AMS STARTED WITH MEDICATIONS. HALLUCINATIONS STARTED VISUAL HALLUCINATIONS LAST NIGHT. HE IS HAVING 8/10 CHEST PAIN RADIATING TO THE BACK. NO SIGNIFICANT SOB. DENIES DYSURIA. HE IS HAVING HEADACHE. Complaint Cheif Complaint Doctors Comments: HALLUCINATIONS, AMS AND RIB FRACTURES. Chief Complaint:: " PATIENT BROKE RIBS LAST WEEK AND HAS BEEN TAKING OXYCODONES AND LASTNIGHT HE STARTED HALLUICATIONING TALKING OUT OF HEAD PATIENT STATES THAT HE IS SEEING THINGS THAT IS NOT THERE." Reviewed Nurses Notes Reviewed: Yes Source History Provided: Patient and Family Member Mode of Arrival Mode of Arrival: Wheelchair Timing Onset of Chief Complaint: 01/25/19 Came On: Suddenly Symptoms: Worsening Duration Duration: Constant Duration: Days Quality Quality: Change in Behavior, Confusion and Memory Loss Severity Severity: Severe Context Recent: Trauma; denies Fever, Cough, Nausea and Vomiting History Of: Hypoglycemia and Diabetes Associated Signs and Symptoms Associated Signs and Symptoms: Headache, Change in Behavior, Confusion and Decreased Oral Intake PMH PMH Past Medical History: Yes Past Medical History: Depression, Diabetes, Dyslipidemia and Hypertension Past Surgical History: Yes Surgical History: Joint Replacement, Ortho Surgery and Other Family History History of Family Medical Conditions: Yes Family Medical History: Coronary Artery Disease and Hypertension Social History Alcohol Use: None Do you use any recreational Drugs:: No infectious screening Have you traveled outside the country in the last 6 months?: No ROS Review of Systems Constitutional: See HPI Eyes: See HPI ENTM: See HPI Respiratoy: See HPI Cardiovascular: See HPI, Chest Pain and Palpitations; negative Edema Gastrointestinal/Abdominal: No Symptoms Reported and See HPI; negative Abdominal Pain, Constipation, Diarrhea, Nausea and Vomiting Genitourinary: No Symptoms Reported and See HPI; negative Dysuria, Frequency and Hematuria Neurological: See HPI, Depressed, Headache, Numbness, Tremors, Weakness and Problems Walking Musculoskeletal: See HPI, Back Pain, Gout, Chest wall and Rib(s) Integumentary: See HPI and Dryness; negative Change in Color, Rash and Bruises Hematologic/Lymphatic: See HPI, Easy Bleeding and Easy Bruising; negative Swollen Glands and Lymphadenopathy Endocrine: See HPI Psychiatric: See HPI, Depression and Hallucinations All Other Systems: Reviewed and Negative Unable to Obtain Due To: Altered mental status PE Vitals Vital Signs: Temp Pulse Pulse Resp BP BP Pulse Ox 01/27/19 08:00 106 H 22 128/75 95 01/27/19 07:04 102 H 34 H 173/88 98 01/27/19 07:00 106 H 45 H 98 01/27/19 06:45 104 H 61 H 01/27/19 06:36 102 H 38 H 168/100 98 01/27/19 06:35 101 H 34 H 172/100 97 01/27/19 06:30 102 H 99 01/27/19 06:15 106 H 97 01/27/19 06:00 104 H 95 01/27/19 05:45 106 H 97 01/27/19 05:30 104 H 93 L 01/27/19 05:15 105 H 98 01/27/19 05:00 115 H 174/80 95 01/27/19 04:45 102 H 01/27/19 04:30 108 H 169/105 97 01/27/19 04:15 103 H 97 01/27/19 04:00 109 H 164/97 95 01/27/19 03:45 102 H 97 01/27/19 03:31 103 H 28 H 125/84 98 01/27/19 03:30 103 H 30 H 98 01/27/19 03:15 113 H 47 H 95 01/27/19 03:00 106 H 97 01/27/19 02:52 178/95 01/27/19 02:30 109 H 48 H 97 01/27/19 02:15 106 H 56 H 98 01/27/19 02:05 109 H 28 H 154/94 97 01/27/19 02:04 109 H 35 H 01/27/19 01:45 109 H 41 H 96 01/27/19 01:30 109 H 40 H 150/87 96 01/27/19 01:15 113 H 43 H 96 01/27/19 01:00 113 H 43 H 146/78 91 L 01/27/19 00:50 112 H 37 H 90 L 01/26/19 23:56 98.3 F 117 H 20 139/82 95 01/19/19 20:59 146/66 146/66 05/14/19 08:00 119/73 General Limitations: Altered Mental Status General Appearance: Alert and In No Apparent Distress Head Head Exam: Normal Inspection, Atraumatic and Normocephalic Head Exam Physical: Other (NONE REPORTED.) Eyes Eye exam: Normal Appearance, PERRL and EOMI; negative Scleral Icterus, Conjunctival Injection, Nystagmus, Miosis, Mydrasis, Periorbital Swelling and Periorbital Tenderness Pupils: Regular, Round: Bilateral and Reactive: Bilateral ENT ENT Exam: Normal Exam, Normal Oropharynx, Normal External Ear Exam and TM's Normal Bilaterally External Ear Exam: Normal External Inspection; negative Mastoid Tenderness, Pain with Movement and External Tenderness TM/Canal Exam: Bilateral: Normal Nose Exam: Normal Nose Exam; negative Sinus Tenderness, Nasal Deviation and Septal Hematoma Mouth Exam: negative Normal Inspection, Drooling, Trismus, Lip Swelling, Tongue Swelling and Laceration Throat Exam: negative Tonsillar Erythema, Tonsillomegaly, Tonsillar Exudate and L Peritonsillar Mass Neck Neck Exam: Normal Inspection, Full ROM and Trachea Midline; negative Tenderness, Meningismus, Lymphadenopathy and Thyromegaly Chest Chest Inspection: Normal Inspection, Symmetric Chest Wall Rise and Tenderness; negative Rash Respiratory Respiratory Exam: Chest Wall Tenderness; negative Accessory Muscle Use and Respiratory Distress Respiratory Exam: Bilateral: Rhonchi, Upper: Rhonchi and Lower: Rhonchi Cardiovascular Cardiovascular Exam: Tachycardia and Normal Heart Sounds; negative Systolic Murmur and Diastolic Murmur Abdominal Exam Abdominal Exam: Normal Inspection, Normal Bowel Sounds and Soft; negative Tenderness, Organomegaly and Mass Extremities Extremities Exam: Normal Inspection and Normal Capillary Refill; negative Tenderness, Edema, Joint Swelling and Calf Tenderness Back Back Exam: Tenderness, Paraspinal Tenderness and Vertebral Tenderness ([place] [employer]ENDANT.) Neurological Neurological Exam: Alert; negative Oriented X3, CN II-XII Intact and Motor Sensory Deficit Patient Oriented To: negative Person, Place and Time Speech: Other (SPEECH ) Cranial Nerve Exam: EOM Function (II, III, IV, ): Normal, Facial Sensation (V): Normal, Facial Palsy (VII): Normal, Gag reflex (XI): Normal, Spinal Accessory Function (XI): Normal and Tongue Deviation: Normal Motor Strength - LUE: 5/5 Motor Strength - RUE: 5/5 Motor Strength - LLE: 5/5 Motor Strength - RLE: 5/5 Upper Motor Neuron Exam: Babinski Sign: Normal Psychological Psychiatric Exam: Agitated Expanded Psychiatric Exam: Restlessness and Visual Hallucinations Skin Skin Exam: Warm and Dry; negative Rash, Diaphoresis and Erythema MDM Additional Information Obtained Additional Information Obtained From: Old Records ([facility] [place] REVIEWED.HE WAS TREATD FOR OPIATE ANTAGONIST ADVERSE EFFECT.) and Family Differential Diagnosis Metabolic: Dehydration, DKA, Hypercalcemia, Hypernatremia, Hypoglycemia and Hyponatremia Structural: CVA and Mass Lesion Toxicologic: Medication Toxicity Infectious: Sepsis and UTI COURSE Treatment Treatment: SEE ORDERS. 00:28 : D50 IV. NS 1L IV BOLUS. 0O:42 : OFIRMEV 1GM IVPB. 03:10 : BENEDRYL 50MG IV ND POTASSIUM EFFERFACENT 50MEQ PO. CLONIDINE 0.1MG. HALDOL 1MGIM. Consultation Consultation Comments: 06:17 : DISCUSS PATIENT WITH DR. RAMIREZ FOR 5 MINUTES. HE WILL ASMIT PATIRNT. ADMIT ORDERS DONE. Education/Counseling Education/Counseling: Patient and Family Educated On: Diagnosis ROR Labs Reviewed Laboratory Results Reviewed?: Yes Result Diagrams: 01/27/19 00:24 01/27/19 05:34 Laboratory: WBC 8.7 X10^3/uL (3.6-10.0) 01/27/19 00:24 RBC 3.65 X10^6/uL (4.7-6.0) L 01/27/19 00:24 Hgb 9.8 g/dL (13.5-18.0) L 01/27/19 00:24 Hct 29.8 % (42.0-54.0) L 01/27/19 00:24 MCV 81.6 fL (80.0-100.0) 01/27/19 00:24 MCH 26.9 pg (27.0-34.0) L 01/27/19 00:24 MCHC 32.9 g/dL (33.0-35.0) L 01/27/19 00:24 RDW 16.9 % (11.6-16.5) H 01/27/19 00:24 Plt Count 409 X10^3/uL (150.0-450.0) 01/27/19 00:24 MPV 8.8 fL (7.4-11.0) 01/27/19 00:24 Neut % (Auto) 63.8 % (42.0-75.0) 01/27/19 00:24 Lymph % (Auto) 21.2 % (21.0-51.0) 01/27/19 00:24 [place] % (Auto) 13.7 % (0.0-13.0) H 01/27/19 00:24 Eos % (Auto) 0.4 % (0.9-2.9) L 01/27/19 00:24 Baso % (Auto) 0.9 % (0.2-1.0) 01/27/19 00:24 Neut # (Auto) 5.5 x10^3/uL (2.2-4.8) H 01/27/19 00:24 Lymph # (Auto) 1.8 X10^3/uL (1.3-2.9) 01/27/19 00:24 [place] # (Auto) 1.2 x10^3/uL (0.3-0.8) H 01/27/19 00:24 Eos # (Auto) 0.0 x10^3/uL (0.0-0.2) 01/27/19 00:24 Baso # (Auto) 0.1 X10^3/uL (0.0-0.1) 01/27/19 00:24 Absolute Nucleated RBC 0.0 /100WBC 01/27/19 00:24 Sodium 138 mmol/L (136-145) 01/27/19 05:34 Corrected Sodium 139 mmol/L (136-145) 01/27/19 05:34 Potassium 3.6 mmol/L (3.5-5.1) 01/27/19 05:34 Chloride 102 mmol/L (98-107) 01/27/19 05:34 Carbon Dioxide 28.7 mmol/L (21-32) 01/27/19 05:34 BUN 14 mg/dL (7-18) 01/27/19 05:34 Creatinine 1.13 mg/dL (0.70-1.30) 01/27/19 05:34 Est GFR (MDRD) Af Amer > 60 (>60) 01/27/19 05:34 Est GFR (MDRD) Non-Af > 60 (>60) 01/27/19 05:34 Glucose 136 mg/dL (65-99) H 01/27/19 05:34 POC Glucose (mg/dL) 149 mg/dL (65-99) H 01/27/19 01:17 Lactic Acid 0.7 mmol/L (0.4-2.0) 01/27/19 05:34 Calcium 9.1 mg/dL (8.5-10.1) 01/27/19 05:34 Corrected Calcium TNP 01/27/19 00:24 Total Bilirubin 0.20 mg/dL (0.2-1.0) 01/27/19 00:24 AST 28 Units/L (15-37) 01/27/19 00:24 ALT 27 Units/L (12-78) 01/27/19 00:24 Alkaline Phosphatase 79 Units/L (46-116) 01/27/19 00:24 Creatine Kinase 348 Units/L (39-308) H 01/27/19 05:34 CK-MB (CK-2) 7.5 ng/mL (0-4.0) H* 01/27/19 05:34 CK/CKMB % Calc 2.2 % (<4) 01/27/19 05:34 Troponin I < 0.02 ng/mL (0-1.5) 01/27/19 05:34 C-Reactive Protein 35.00 mg/L (0-3.0) H 01/27/19 05:34 Total Protein 8.2 g/dL (6.4-8.2) 01/27/19 00:24 Albumin 3.5 g/dL (3.4-5.0) 01/27/19 00:24 Globulin 4.7 g/dL (2.5-4.5) H 01/27/19 00:24 Albumin/Globulin Ratio 0.7 Ratio (1.1-2.1) L 01/27/19 00:24 Specimen Type Clean catch urine 01/27/19 00:49 Urine Color Dark yellow (YELLOW) 01/27/19 00:49 Urine Appearance Clear (CLEAR) 01/27/19 00:49 Urine pH 5.0 (5.0 - 8.0) 01/27/19 00:49 Ur Specific [place] 1.020 (1.000-1.030) 01/27/19 00:49 Urine Protein 2+ (NEGATIVE) 01/27/19 00:49 Urine Glucose (UA) 3+ (NEGATIVE) 01/27/19 00:49 Urine Ketones 1+ (NEGATIVE) 01/27/19 00:49 Urine Occult Blood 3+ (NEGATIVE) 01/27/19 00:49 Urine Nitrite Negative (NEGATIVE) 01/27/19 00:49 Urine Bilirubin Negative (NEGATIVE) 01/27/19 00:49 Urine Urobilinogen Normal (NORMAL) 01/27/19 00:49 Ur Leukocyte Esterase Negative (NEGATIVE) 01/27/19 00:49 Urine RBC None seen /HPF (NONE SEEN) 01/27/19 00:49 Urine WBC None seen /HPF (NONE SEEN) 01/27/19 00:49 Ur Squamous Epith Cells Negative /HPF (NEGATIVE) 01/27/19 00:49 Urine Bacteria Negative /HPF (NEGATIVE) 01/27/19 00:49 Hyaline Casts Rare /LPF (NEGATIVE) 01/27/19 00:49 Urine Mucus Numerous /HPF (NEGATIVE) 01/27/19 00:49 Ur Culture Indicated? No/not indicated 01/27/19 00:49 Salicylates < 2.8 mg/dL (2.8-20) L 01/27/19 00:24 Urine Opiates Screen Positive (NEG=<300) 01/27/19 00:49 Urine Methadone Screen Negative (NEG=<300) 01/27/19 00:49 Acetaminophen 0.0 ug/mL (10-30) L 01/27/19 00:24 Ur Barbiturates Screen Positive (NEG=<200) 01/27/19 00:49 Ur Phencyclidine Scrn Negative (NEG=<25) 01/27/19 00:49 Ur Amphetamines Screen Negative (NEG=<1000) 01/27/19 00:49 U Benzodiazepines Scrn Negative (NEG=<200) 01/27/19 00:49 Urine Cocaine Screen Negative (NEG=<300) 01/27/19 00:49 U Marijuana (THC) Screen Negative (NEG=<50) 01/27/19 00:49 XRAY XRAY Interpreted by: Radiologist XRAY Findings: REPORT ON THIS RECORD NOTED AND DISCUSS WITH WITH PATIENT AND HIS FAMILY. EKG Rate: 102 [place]: Normal Rhythm: ST Block: None Hypertrophy: LAE ST: Nonsp Opioid Opioid Risk Tool Age ([place]aqar box if 16-45): No History of Preadolescent Sexual Abuse: No Total: 0 Total Score Risk Category: Low Risk Copyright: Rambo MARCIAL predicting aberrant behaviors Management Prescription drug monitoring program results: PDMP reviewed and no concerns identified Diagnosis Discharge Problem: Hypoglycemia, Hypokalemia Altered mental status Qualifiers: Altered mental status type: transient alteration of awareness Qualified Code(s): R40.4 - Transient alteration of awareness
[2019-01-27] MEDS ORDERED: NS 250 ML IV 250 ML IV SCH (01:00)
--- NOTE | 2019-01-27 01:09 | RAD ---
Chest, one view Indication: 'Patient broke ribs last week and has been taking oxycodone and last night he started hallucinating talking out of his head patient states that he is seeing things that is not there' Comparison: 12/18/2018 Findings/Impression: Evaluation is limited secondary to patient rotation. Accounting for this, the heart is stable in size. Mild left basilar atelectasis noted. The remainder of the lungs are grossly clear. No significant pleural effusion or pneumothorax is identified. Mildly displaced fractures of the right 5th-7th and possibly 8th ribs noted. Reported By:
[2019-01-27 01:10] LABS: BILIRUBIN,URINE NEGATIVE (NEGATIVE); BLOOD/HEMOGLOBIN,URINE 3+ (NEGATIVE); GLUCOSE, URINE 3+ (NEGATIVE); KETONES,URINE 1+ (NEGATIVE); LEUKOCYTE ESTERASE ,URINE NEGATIVE (NEGATIVE); NITRITES,URINE NEGATIVE (NEGATIVE); PROTEIN,URINE 2+ (NEGATIVE); UROBILINOGEN,URINE NORMAL (NORMAL)
[2019-01-27 01:22] LABS: APPEARANCE,URINE CLEAR (CLEAR); BACTERIA,URINE NEGATIVE /HPF (NEGATIVE); COLOR,URINE DARK YELLOW (YELLOW); HYALINE CASTS, URINE RARE /LPF (NEGATIVE); MUCUS,URINE NUMEROUS /HPF (NEGATIVE); RBC,URINE NONE SEEN /HPF (NONE SEEN); SQUAMOUS EPITHELIAL CELL,UR NEGATIVE /HPF (NEGATIVE)
--- NOTE | 2019-01-27 02:16 | CT ---
CT head without contrast Indication: 'Patient broke ribs last week and has been taking oxycodone and last night he started hallucinating talking out of his head patient states that he is seeing things that is not there' Technique: Helical CT images of the brain were obtained without IV contrast. Reformatted images in the coronal and sagittal planes were also generated for review. Comparison: 12/18/2018 Findings: Mild generalized atrophy and microangiopathy appears unchanged in the short interval. Vuong-white differentiation is maintained. No visible acute infarction is identified. There is no intracranial hemorrhage, extra-axial collection, hydrocephalus or mass. Visualized paranasal sinuses and mastoid air cells are clear. Imaged extracranial structures are grossly unremarkable. Impression: Stable exam without acute intracranial abnormality. Reported By:
[2019-01-27] MEDS ORDERED: BENADRYL INJ 50 MG VIAL IVP ONE (03:09)
[2019-01-27] MEDS ORDERED: K-LYTE EFFERVESCENT PO ONE (03:10)
[2019-01-27] MEDS ORDERED: K-LYTE EFFERVESCENT ONE (03:14)
[2019-01-27] MEDS ORDERED: BENADRYL INJ 50 MG VIAL ONE (03:15)
[2019-01-27] MEDS ORDERED: NS 1000 ML 1,000 ML IV ONE (03:30)
[2019-01-27] MEDS ORDERED: NS 1000 ML 1,000 ML ONE (03:33)
[2019-01-27 03:56] LABS: SALICYLATE < 2.8 mg/dL (2.8-20)
[2019-01-27] MEDS ORDERED: CATAPRES TAB 0.1 MG PO ONE (05:23)
[2019-01-27] MEDS ORDERED: CATAPRES TAB 0.1 MG ONE (05:24)
[2019-01-27 05:59] LABS: BLOOD UREA NITROGEN 14 mg/dL (7-18); CALCIUM 9.1 mg/dL (8.5-10.1); CARBON DIOXIDE 28.7 mmol/L (21-32); CHLORIDE 102 mmol/L (98-107); COR NA(FOR HYPERGLY) 139 mmol/L (136-145); CREATININE 1.13 mg/dL (0.70-1.30); SODIUM 138 mmol/L (136-145); TROPONIN I < 0.02 ng/mL (0-1.5); eGFR NON BLACK RACES > 60 (>60)
[2019-01-27 06:00] LABS: LACTIC ACID 0.7 mmol/L (0.4-2.0)
[2019-01-27 06:23] LABS: CKMB % 2.2 % (<4); CREATINE KINASE 348 Units/L (39-308)
[2019-01-27] MEDS ORDERED: HALDOL INJ IM ONE (06:23)
[2019-01-27 06:25] LABS: CREATINE KINASE MB 7.5 ng/mL (0-4.0)
[2019-01-27] MEDS ORDERED: HALDOL INJ IM PRN (07:19)
[2019-01-27] MEDS ORDERED: NS 1000 ML 1,000 ML IV SCH (08:00)
[2019-01-27] MEDS ORDERED: NORVASC TAB 5 MG PO SCH (11:00)
[2019-01-27 11:51] LABS: CKMB % 2.4 % (<4); CREATINE KINASE 367 Units/L (39-308); TROPONIN I < 0.02 ng/mL (0-1.5)
[2019-01-27 11:58] LABS: CREATINE KINASE MB 8.8 ng/mL (0-4.0)
[2019-01-27] MEDS: PROTONIX TAB 40 MG PO SCH ×2 (12:18→21:09)
[2019-01-27] MEDS: MAG-OX TAB PO SCH ×2 (12:18→21:08)
[2019-01-27] MEDS: PEPCID TAB 20 MG PO SCH ×2 (12:18→21:09)
[2019-01-27] MEDS: ZESTRIL TAB 20 MG PO SCH ×2 (12:18→21:07)
--- NOTE | 2019-01-27 12:47 | MRI ---
MRI BRAIN WITHOUT CONTRAST CLINICAL HISTORY: 63-year-old male with altered mental status, hallucinations and weakness COMPARISON: CT head this date, MR brain 11/09/2018. TECHNIQUE: Multiplanar, multisequence MR images of the brain were obtained without contrast. FINDINGS: Study is limited secondary to patient motion. There is no evidence of diffusion restriction. The craniocervical junction is normal. Pituitary and optic nerve complex are normal. Few scattered punctate T2 FLAIR signal hyperintensities are present within the subcortical, juxtacortical, periventricular and supraventricular white matter that are nonspecific in appearance but most likely to represent microvascular white matter ischemic changes. Normal signal characteristics and morphology are demonstrated within the cerebral cortex, corpus callosum, deep patiño nuclei, brainstem and cerebellum. The major vascular flow voids, to include the dural venous sinuses, are intact. No abnormal susceptibility on gradient imaging. Age related cortical volume loss is present, with commensurate sulcal and ventricular prominence. The basilar cisterns are normal. The orbits and globes are within normal limits. Mild mucosal thickening ethmoid labyrinth with remaining paranasal sinuses, mastoid air cells and tympanic cavities clear. IMPRESSION: 1. No acute ischemic or hemorrhagic insult. 2. Mild, chronic microvascular white matter ischemic disease with associated age related volume loss. 3. Mild mucosal thickening ethmoid labyrinth, nonspecific, correlate clinically. Reported By:
[2019-01-27] MEDS: ULTRAM PO SCH ×4 (13:15→21:10)
[2019-01-27] MEDS: HALDOL INJ IM PRN ×2 (15:30→22:14)
[2019-01-27 15:56] LABS: CKMB % 2.4 % (<4); CREATINE KINASE 357 Units/L (39-308); TROPONIN I < 0.02 ng/mL (0-1.5)
[2019-01-27 15:57] LABS: CREATINE KINASE MB 8.5 ng/mL (0-4.0)
[2019-01-27] MEDS ORDERED: MORPHINE SULFATE INJ 2 MG INJ IVP PRN (16:59)
[2019-01-27] MEDS ORDERED: MORPHINE SULFATE INJ 2 MG INJ ONE (17:01)
[2019-01-27] MEDS ORDERED: NORCO 10/325 TAB ONE (17:34)
[2019-01-27] MEDS: NORCO 10/325 TAB PO PRN (17:38)
[2019-01-27] MEDS ORDERED: HumuLIN R ONE (17:44)
[2019-01-27] MEDS: HumuLIN R SUBCUT PRN ×2 (17:45→21:11)
[2019-01-27 19:31] LABS: CKMB % 1.9 % (<4); CREATINE KINASE 567 Units/L (39-308); TROPONIN I < 0.02 ng/mL (0-1.5)
[2019-01-27 19:39] LABS: CREATINE KINASE MB 10.9 ng/mL (0-4.0)
[2019-01-27] MEDS ORDERED: ZESTRIL TAB 20 MG ONE (20:46)
[2019-01-27] MEDS: SNACK - Diabetic Appropriate PO SCH (21:05)
[2019-01-27] MEDS: NORVASC TAB 5 MG PO SCH (21:08)
[2019-01-28] MEDS: NORCO 10/325 TAB PO PRN ×4 (00:25→18:45)
[2019-01-28] MEDS ORDERED: GEODON INJ IM ONE ×2 (01:16→01:21)
[2019-01-28 05:20] LABS: BASOPHILS # (AUTO) 0.1 X10^3/uL (0.0-0.1); BASOPHILS % (AUTO) 0.9 % (0.2-1.0); HEMATOCRIT 29.4 % (42.0-54.0); HEMOGLOBIN 9.3 g/dL (13.5-18.0); LYMPHOCYTES # (AUTO) 1.4 X10^3/uL (1.3-2.9); LYMPHOCYTES % (AUTO) 11.4 % (21.0-51.0); MEAN CORPUSCULAR HEMOGLOBIN 26.2 pg (27.0-34.0); MEAN CORPUSCULAR HGB CONC 31.7 g/dL (33.0-35.0); MEAN CORPUSCULAR VOLUME 82.7 fL (80.0-100.0); MEAN PLATELET VOLUME 9.2 fL (7.4-11.0); MONOCYTES # (AUTO) 1.3 x10^3/uL (0.3-0.8); MONOCYTES % (AUTO) 10.1 % (0.0-13.0); NEUTROPHILS # (AUTO) 9.7 x10^3/uL (2.2-4.8); NEUTROPHILS % (AUTO) 77.6 % (42.0-75.0); PLATELET COUNT 454 X10^3/uL (150.0-450.0); RED BLOOD COUNT 3.55 X10^6/uL (4.7-6.0); RED CELL DISTRIBUTION WIDTH 16.8 % (11.6-16.5); WHITE BLOOD COUNT 12.4 X10^3/uL (3.6-10.0)
[2019-01-28 05:32] LABS: ALANINE AMINOTRANSFERASE 35 Units/L (12-78); ALBUMIN 3.2 g/dL (3.4-5.0); ALKALINE PHOSPHATASE 90 Units/L (46-116); ASPARTATE AMINO TRANSFERASE 50 Units/L (15-37); BLOOD UREA NITROGEN 15 mg/dL (7-18); CALCIUM 8.9 mg/dL (8.5-10.1); CARBON DIOXIDE 29.4 mmol/L (21-32); CHLORIDE 99 mmol/L (98-107); COR CA(FOR HYPOALB) 9.5 mg/dL (8.5-10.1); COR NA(FOR HYPERGLY) 139 mmol/L (136-145); CREATININE 1.21 mg/dL (0.70-1.30); SODIUM 136 mmol/L (136-145); TOTAL PROTEIN 7.8 g/dL (6.4-8.2); eGFR NON BLACK RACES > 60 (>60)
[2019-01-28] MEDS: HumuLIN R SUBCUT PRN ×3 (06:47→16:26)
[2019-01-28] MEDS ORDERED: ZESTRIL TAB 20 MG ONE ×2 (08:03→22:44)
[2019-01-28] MEDS: ULTRAM PO SCH ×4 (08:05→22:45)
[2019-01-28] MEDS: PEPCID TAB 20 MG PO SCH ×2 (08:05→22:45)
[2019-01-28] MEDS: ZESTRIL TAB 20 MG PO SCH ×2 (08:05→22:45)
[2019-01-28] MEDS: PROTONIX TAB 40 MG PO SCH ×2 (08:05→22:45)
[2019-01-28] MEDS: MAG-OX TAB PO SCH ×2 (08:05→22:45)
[2019-01-28] MEDS ORDERED: TORADOL 30 MG VIAL IVP PRN (10:37)
[2019-01-28] MEDS ORDERED: PAXIL ONE (11:00)
[2019-01-28] MEDS ORDERED: TORADOL 30 MG VIAL ONE (11:00)
[2019-01-28] MEDS ORDERED: ATIVAN TAB 0.5 MG ONE (11:00)
[2019-01-28] MEDS: PAXIL PO SCH (11:03)
[2019-01-28] MEDS: ATIVAN TAB 0.5 MG PO SCH ×3 (11:03→22:45)
[2019-01-28] MEDS ORDERED: PHENOBARBITAL SODIUM INJ 65 MG VIAL ONE (14:51)
[2019-01-28] MEDS ORDERED: PHENOBARBITAL SODIUM INJ 65 MG VIAL IM NR (15:00)
[2019-01-28] MEDS: LIBRIUM PO PRN (15:18)
[2019-01-28] MEDS ORDERED: PHENOBARBITAL SODIUM INJ 65 MG VIAL IM PRN (17:36)
[2019-01-28] MEDS: GEODON INJ IM SCH ×2 (19:21→23:06)
[2019-01-28] MEDS: SNACK - Diabetic Appropriate PO SCH (20:00)
[2019-01-28] MEDS: NORVASC TAB 5 MG PO SCH (22:45)
[2019-01-29] MEDS: NORCO 10/325 TAB PO PRN ×2 (01:20→07:21)
[2019-01-29] MEDS: LIBRIUM PO PRN (01:20)
[2019-01-29] MEDS: ATIVAN TAB 0.5 MG PO SCH (06:00)
[2019-01-29] MEDS: HumuLIN R SUBCUT PRN ×2 (06:01→12:14)
[2019-01-29 06:10] LABS: BASOPHILS # (AUTO) 0.1 X10^3/uL (0.0-0.1); EOSINOPHILS % (AUTO) 0.1 % (0.9-2.9); HEMATOCRIT 28.1 % (42.0-54.0); HEMOGLOBIN 9.1 g/dL (13.5-18.0); LYMPHOCYTES # (AUTO) 1.4 X10^3/uL (1.3-2.9); LYMPHOCYTES % (AUTO) 11.1 % (21.0-51.0); MEAN CORPUSCULAR HEMOGLOBIN 26.2 pg (27.0-34.0); MEAN CORPUSCULAR HGB CONC 32.3 g/dL (33.0-35.0); MEAN PLATELET VOLUME 8.8 fL (7.4-11.0); MONOCYTES # (AUTO) 1.6 x10^3/uL (0.3-0.8); NEUTROPHILS # (AUTO) 9.1 x10^3/uL (2.2-4.8); NEUTROPHILS % (AUTO) 74.8 % (42.0-75.0); PLATELET COUNT 503 X10^3/uL (150.0-450.0); RED BLOOD COUNT 3.47 X10^6/uL (4.7-6.0); RED CELL DISTRIBUTION WIDTH 17.3 % (11.6-16.5); WHITE BLOOD COUNT 12.2 X10^3/uL (3.6-10.0)
[2019-01-29 06:22] LABS: ALANINE AMINOTRANSFERASE 55 Units/L (12-78); ALBUMIN 3.7 g/dL (3.4-5.0); ALKALINE PHOSPHATASE 111 Units/L (46-116); ASPARTATE AMINO TRANSFERASE 94 Units/L (15-37); BLOOD UREA NITROGEN 37 mg/dL (7-18); CARBON DIOXIDE 27.2 mmol/L (21-32); CHLORIDE 96 mmol/L (98-107); COR NA(FOR HYPERGLY) 138 mmol/L (136-145); CREATININE 1.98 mg/dL (0.70-1.30); SODIUM 134 mmol/L (136-145); TOTAL PROTEIN 7.9 g/dL (6.4-8.2); eGFR NON BLACK RACES 36 (>60)
[2019-01-29] MEDS ORDERED: ZESTRIL TAB 20 MG ONE (08:12)
[2019-01-29] MEDS: PAXIL PO SCH (08:14)
[2019-01-29] MEDS: PEPCID TAB 20 MG PO SCH (08:14)
[2019-01-29] MEDS: ULTRAM PO SCH ×2 (08:14→12:14)
[2019-01-29] MEDS: PROTONIX TAB 40 MG PO SCH (08:16)
[2019-01-29] MEDS: MAG-OX TAB PO SCH (08:16)
[2019-01-29] MEDS: GEODON INJ IM SCH (08:30)
[2019-01-29] MEDS ORDERED: PEPCID TAB 20 MG PO SCH (09:00)
[2019-01-29] MEDS: ZESTRIL TAB 20 MG PO SCH ×2 (10:49→11:32)
[2019-01-29 12:17] VITALS: BP 140/67
--- NOTE | 2019-01-31 10:41 | DR.H&P ---
H&P - History & Physical for Day of: H&P Date: 01/27/19 - Chief Complaint Chief Complaint: ALTERED MENTAL STATUS, HALLUCINATIONS, RIB FRACTURES - History of Present Illness History of Present Illness: IS A 63 YEAR OLD PATIENT OF OURS WHO PRESENTED TO THE EMERGENCY ROOM WITH FAMILY REPORTING COMPLAINTS OF HALLUCINATIONS AND ALTERED MENTAL STATUS. HIS FAMILY REPORTS THAT HE FELL OFF OF HIS HORSE ON 01/18/19 AND FRACTURED THREE OR FOUR RIBS ON THE RIGHT SIDE. THEY REPORT THAT HE HAS BEEN TAKING OXYCODONE AT HOME AND HALLUCINATING SINCE. ON ARRIVAL TO THE ER, PATIENT IS DISORIENTED AND AGITATED. HE DOES REPORT CHEST PAIN /, BUT DENIES SHORTNESS OF BREATH. HE ALSO REPORTS A HEADACHE. PATIENTS DAUGHTER REPORTS THAT SHE FEELS IF PATIENTS ALTERED MENTAL STATUS STATED AFTER HE STARTED TAKING THE OXYCODONE. MEDICAL HISTORY INCLUDES DIABETES, HYPERTENSION, DYSLIPIDEMIA, AND DEPRESSION. ON ARRIVAL TO THE ER, VITALS WERE 98.3-117-20-95%-139/82. LABS WERE OBTAINED. ABNORMAL LAB VALUES INCLUDE THE FOLLOWING: RBC 3.65, HGB 9.8, HCT 29.8, POTASSIUM 3.3, GLUCOSE 50, GLOBULIN 4.7. LABS WERE REPEATED AT 05:34 AND REVEALED GLUCOSE 136, CREATINE KINASE 348, CK-MB 7.5, CRP 35.0. TOXICOLOGY WAS POSITIVE FOR OPIATES AND BARBITURATES. BLOOD CULTURES WERE OBTAINED. A CHEST XRAY WAS OBTAINED AND REVEALED: Evaluation is limited secondary to patient rotation. Accounting for this, the heart is stable in size. Mild left basilar atelectasis noted. The remainder of the lungs are grossly clear. No significant pleural effusion or pneumothorax is identified. Mildly displaced fractures of the right 5th-7th and possibly 8th ribs noted. WE OBTAINED A BRAIN CT. IT REVEALED: Mild generalized atrophy and microangiopathy appears unchanged in the short interval. Vuong-white differentiation is maintained. No visible acute infarction is identified. There is no intracranial hemorrhage, extra-axial collection, hydrocephalus or mass. Visualized paranasal sinuses and mastoid air cells are clear. Imaged extracranial structures are grossly unremarkable. EKG REVEALED: SINUS TACHYCARDIA WITH HR 102. A BRAIN MRI WAS ALSO OBTAINED AND REVEALED: No acute ischemic or hemorrhagic insult. Mild, chronic microvascular white matter ischemic disease with associated age related volume loss. Mild mucosal thickening ethmoid labyrinth, nonspecific, correlate clinically. - Past Medical History Past Medical History: Hypertension, Dyslipidemia, Diabetes, Depression - Past Surgical History Surgical History: Joint Replacement, Ortho Surgery, Other - Family History Family Medical History: Coronary Artery Disease, Hypertension - Social History Does patient currently use any type of tobacco product: No Have you used tobacco products in the last 12 months: No Type of Tobacco Use: None Does any household member use tobacco: No Alcohol Use: None Drug Use: Prescription Drugs - Medications Home Medications: amoxicillin Allergy (Verified 01/19/19 09:41) CONTINUE taking the following medications amlodipine 5 mg PO .EVENING 01/27/19 [History] cyclobenzaprine 10 mg PO BID PRN 01/27/19 [History] lisinopril 20 mg PO BID 01/27/19 [History] magnesium 250 mg PO BID 01/27/19 [History] oxycodone-acetaminophen [Percocet] 1 tab PO Q6HR PRN 01/27/19 [History] tramadol 50 mg PO QID 01/27/19 [History] - Physical Exam Vital Signs: Temperature 98 F Pulse Rate [Apical] 115 Pulse Rate 102 Respiratory Rate 26 Blood Pressure [Right Arm] 140/67 Blood Pressure [Left Arm] 146/66 Blood Pressure [Left Arm] 128/75 Blood Pressure 173/88 O2 Sat by Pulse Oximetry 95 - Allergies Allergies/Adverse Reactions: Allergies Allergy/AdvReac Type Severity Reaction Status Date / Time amoxicillin Allergy Verified 01/19/19 09:41
== END 2019-01-29 12:40 ==
LOC: ER 23:55 → OBS 23:55 → ICU 01-27 13:15
PROVIDERS: ADMIT Internal Medicine; ATTEND Internal Medicine
DX: E11.649 Type 2 diabetes mellitus with hypoglycemia without coma; W18.39XA Other fall on same level, initial encounter; E78.2 Mixed hyperlipidemia; I10 Essential (primary) hypertension; F32.89 Other specified depressive episodes; S22.41XA Multiple fractures of ribs, right side, initial encounter for closed fracture; R44.1 Visual hallucinations; E87.6 Hypokalemia; R51 Headache; R41.82 Altered mental status, unspecified; R94.31 Abnormal electrocardiogram [ECG] [EKG]; R07.89 Other chest pain; Z79.899 Other long term (current) drug therapy; Y92.89 Other specified places as the place of occurrence of the external cause
CPT/HCPCS: 36415; 70450; 70551; 71010; 71045; 80048; 80053; 80307; 81001; 82550; 82553; 83605; 84484; 85025; 86140; 87040; 93005; 96365; 96367; 96372; 96374; 96375; 99284; A4222; G0378; G0434; G6038; G6039; J0131; J1200; J1630; J1815; J1885; J2270; J2560; J3486; J3490; J7030; J7050; J8499